=== PATIENT | male | born 1955 | race Two or more races ===

== ENCOUNTER 2024-06-30 12:21 | Inpatient (IN) | payer OTHER, SELFPAY ==
[2024-06-30] VITALS (99 sets, daily range): BP systolic 63–148; BP diastolic 42–97; BMI 28.2
--- NOTE | 2024-06-30 09:31 | ED.GENMED ---
History of Present Illness
<Rhett Gil PA-C - Last Filed: 06/30/24 11:49>
General
Chief Complaint: CVA/TIA Symptoms
Source: patient and other (Correctional officers)
Time Seen by Provider: 06/30/24 09:22
History of Present Illness
History of Present Illness:
68-year-old male with a reported past medical history of myf-[id number] diabetes presenting to the emergency department from [facility] for reported change in mental status and patient being off balance with an unknown
onset of symptoms. Patient also noting left eye visual disturbance but unclear as to if this is a chronic or new symptom. Correctional officers were with the patient note that he is normally loud and boisterous but today patient seems to be much
more quiet and seemingly having some difficulty speaking. The note from nursing staff at the [facility] patient had some difficulty answering some questions. Patient denying any pain to me as well as any focal weakness or numbness but
remaining history was very difficult to obtain as patient would sometimes just not answer the question or speak at all.
Past History
<Rhett Gil PA-C - Last Filed: 06/30/24 11:49>
Past History
ED Past Medical History: NIDDM
ED Past Surgical History: Other (Unknown)
Social History
Tobacco: Former smoker
Alcohol: None
Drug: None
Personal: Single
Living: nursing home
Review of Systems
<Rhett Gil PA-C - Last Filed: 06/30/24 11:49>
Review of Systems
Unable to obtain full review of systems at this time due to: due to acuity
All Other Systems: ROS reviewed and negative except as documented in HPI and ROS
Phy Exam
<Rhett Gil PA-C - Last Filed: 06/30/24 11:49>
Physical Exam
Physical Exam:
GENERAL: Alert , in no apparent distress, answering some questions
HEAD: NCAT
EYE: clear conjunctiva, pupils 3 mm, unable to assess visual field as patient having a hard time participating with exam
NECK: Supple
ENT: o/p clr, mmm.
CARDIAC: Regular rate and rhythm .
LUNGS: Clear breath sounds bilaterally, no acute respiratory distress, no wheezes/rales/rhonchi
ABDOMEN: Soft, without focal tenderness, no r/g, no cvat
NEUROLOGICAL: Alert and oriented to place and self, FULLER x4, reports sensation intact
SKIN: very cold to touch, unable to obtain temperature and dry, skin intact.
MUSCULOSKELETAL: No edema, well perfused.
PSYCH: difficult to assess, somewhat flat affect
Scores
<Rhett Gil PA-C - Last Filed: 06/30/24 11:49>
Heart Failure Risk
Heart Failure Risk Score: Not Applicable
Heart Score for Chest Pain Patients
STEMI patient?: Not applicable
Withdrawal Assessment of Alcohol
Withdrawal Assessment Completed?: Not applicable
Sepsis
<Rhett Gil PA-C - Last Filed: 06/30/24 11:49>
Sepsis Screening
Sepsis Assessment: Septic Shock
Sepsis Screening: Hypotension and Vasopressor support required
Sepsis Screen
Sepsis Screen: Septic Shock
Date: 06/30/24
Time: 11:48
<Melvin Kim MD - Last Filed: 06/30/24 12:57>
Sepsis Screen
Sepsis Screen: Septic Shock
Date: 06/30/24
Time: 12:54
Course
<Rhett Gil PA-C - Last Filed: 06/30/24 11:49>
Orders/Labs/Results
Orders:
Orders
06/30/24 09:28
Electrocardiogram (*1) Urgent
Reason for Study: Other
Other Reason for Exam: sepsis
EKG- Treatment ONCE
Rubin Placement- Treatment ONCE
Reason for insertion: I&O's Critical Care
0.9% Sodium Chloride 1000 ml [Nss] 2,900 ml IV NOW STA
06/30/24 09:30
CT Head W/o Iv Contrast Urgent
Comment:
Reason For Exam: change in mental status
06/30/24 09:40
Vincenzo Hugger [Vincenzo Hugger-Treatment] ONCE
Patient's goal temperature:: 97 F
Additional Instructions:: Temperature and skin assessment per unit protocol
06/30/24 09:59
Atropine Sulfate [Atropine 0.1 mg/ml Syringe] 1 mg .ROUTE .STK-MED ONE
06/30/24 10:11
CR Chest Portable - 1 View Urgent
Comment:
Reason For Exam: change in mental status, hypothermia
Reason Study Needs to be Portable: Patient Unstable
06/30/24 10:12
Visual Acuity- Treatment ONCE
06/30/24 10:22
Complete Blood Count/With Diff Urgent
Comprehensive Metabolic Panel Urgent
Cortisol, Random Urgent
Comment: ADD ON
Free T4 Urgent
Comment: ADD
Lactic Acid Q4H
Comment: CANCEL 2nd LACTIC ACID IF 1st LACTIC ACID IS LESS THAN 2
Lyme Progressive Routine
Comment: ADD
TSH Urgent
Comment: ADD ON
Troponin I Urgent
Blood Culture Q30M
MARIA GUADALUPE Source: Blood/Venous
Specimen Description:
Blood Culture Q30M
MARIA GUADALUPE Source: Blood/Venous
Specimen Description:
06/30/24 10:26
Urinalysis Reflex To Culture Urgent
Date Specimen was Collected: 06/30/24
Time Specimen was Collected: 10:25
06/30/24 10:32
Warming [Thermal Regulation-Treatment] ONCE
Mode:: Automatic
Type of thermoregulation:: Heating
PATIENT'S Goal Temperature:: 96.8 F (36 C)
Comments/Additional Instructions:: Temperature and skin assessment per unit protocol
06/30/24 10:51
Atropine Sulfate [Atropine 0.1 mg/ml Syringe] 0.5 mg IV NOW STA
06/30/24 11:00
DOPamine 400 MG/D5W 250 ML [DOPamine 400 MG] 400 mg in 250 ml IV PER PROTOCOL
Initial dose in mcg/kg/min, then titrate:: 2
Titrate to keep:: SBP > 90 mmHg
Titrate by mcg/kg/min:: 1-2 mcg/kg/min
Frequency of titrations (minutes):: 15
Maximum dose in ICU in mcg/kg/min:: 20
Maximum dose in IMU in mcg/kg/min:: 10
Begin to taper infusion when:: Remained at goal for 4hrs
Taper by mcg/kg/min:: 1-2 mcg/kg/min
Frequency of taper (minutes) if patient maintains goal:: 30
Taper to off?: Yes
If infusion off & no longer maintaining goal:: Contact Provider
06/30/24 11:11
COVID-19 Antigen Urgent
Source: Nasal Swab
Influenza A+B Rapid Molecular Urgent
MARIA GUADALUPE Source: Nasal Swab
Specimen Description:
PICC Line As Directed
06/30/24 11:36
Add On- LAB Urgent
Tests Added?: tsh,cortisol
06/30/24 11:40
Echo 2D MMode Color/Doppler Routine
Reason for Study: willy and hypotension
CARDIOLOGY CONSULT Routine
Consulting Provider: Miguelito Story
Was physician already notified: Yes
Reason for consult: willy, hypotension
06/30/24 11:41
NEUROLOGY CONSULT Routine
Consulting Provider: Alexa Silva
Was physician already notified: Yes
Reason for consult: Speech changes
06/30/24 11:42
Atropine Sulfate [Atropine 0.1 mg/ml Syringe] 1 mg IV Q4HPRN PRN
06/30/24 11:43
Heating/Cooling [place] As Directed
Mode:: Automatic
Type of thermoregulation:: Heating
PATIENT'S Goal Temperature:: 96.8 F (36 C)
Comments/Additional Instructions:: Temperature and skin assessment per unit protocol
06/30/24 11:44
Admit/Transfer Patient As Directed
Co-Sign Provider:
Level of Care: Inpatient admission
Assign to:: ICU
Physician / Group: Hospitalist
Diagnosis: Bradycardia,hypothermia
Reason for Hospitalization: Willy
Expected length of stay greater than two midnights?: Yes
ELOS- Estimated Length of Stay in days: 2
I certify the patient meets the requirements for IP care: Yes
06/30/24 11:45
Troponin I Q6H
PRN Pain Medication Management As Directed
May give lesser potent ordered pain med per pt: Yes
preference::
Protocol:: Medication orders for pain may be administered in a
manner that supports deferring to patient preference
when the pt is:
- Requesting an ordered lesser potent pain medication.
Least to most potent pain medications are defined
as: acetaminophen < NSAID < tramadol < opioids
(morphine, oxycodone, hydromorphone).
- Requesting a lesser dose of the same medication IF
ORDERED.
- Requesting a less intrusive route of administration
if both routes are prescribed by the provider (PO <
IV).
06/30/24 11:52
Add On- LAB Urgent
Comments:: in lab
Tests Added?: Lyme progressive
06/30/24 12:06
Add On- LAB Routine
Tests Added?: TSH with reflex to free T4
06/30/24 12:12
Cr Chest Portable [CR Chest Portable - 1 View] Urgent
Comment:
Reason For Exam: left sided PICC placement
Reason Study Needs to be Portable: Unable to Transport
06/30/24 17:45
Troponin I Q6H
06/30/24 23:45
Troponin I Q6H
Abnormal Lab Results
06/30/24 06/30/24 06/30/24
09:53 10:22 10:26
WBC 3.3 L 10^3/uL
(4.8-10.8)
RBC 4.31 L 10^6/uL
(4.70-6.10)
Hgb 12.7 L g/dL
(13.0-18.0)
MCHC 32.3 L g/dL
(33.0-37.0)
MPV 12.8 H fL
(7.4-10.4)
Absolute Lymphs (auto) 0.6 L 10^3/uL
(1.2-3.4)
Lymphocytes % 17.9 L %
(20.5-51.1)
Chloride 95 L mmol/L
(98-107)
Carbon Dioxide 32 H mmol/L
(22-30)
BUN 23 H mg/dl
(9-20)
Glucose 167 H mg/dl
(70-99)
Troponin I 0.039 H* ng/ml
Urine Glucose 1+ A
(Negative)
POC Glucose 204 H mg/dl
(70-99)
06/30/24 10:22
06/30/24 10:22
Vital Signs
Initial and Last Documented VS:
Initial Vital Signs
Pulse Resp BP Pulse Ox
62 20 129/82 98
06/30/24 09:21 06/30/24 09:21 06/30/24 09:21 06/30/24 09:21
Last Documented Vital Signs
Temp Pulse Resp BP Pulse Ox
90.9 F L 58 7 121/58 96
06/30/24 12:00 06/30/24 12:00 06/30/24 12:00 06/30/24 11:55 06/30/24 12:00
<Melvin Kim MD - Last Filed: 06/30/24 12:57>
Orders/Labs/Results
Orders:
Orders
06/30/24 09:28
Electrocardiogram (*1) Urgent
Reason for Study: Other
Other Reason for Exam: sepsis
EKG- Treatment ONCE
Rubin Placement- Treatment ONCE
Reason for insertion: I&O's Critical Care
0.9% Sodium Chloride 1000 ml [Nss] 2,900 ml IV NOW STA
06/30/24 09:30
CT Head W/o Iv Contrast Urgent
Comment:
Reason For Exam: change in mental status
06/30/24 09:40
Vincenzo Hugger [Vincenzo Hugger-Treatment] ONCE
Patient's goal temperature:: 97 F
Additional Instructions:: Temperature and skin assessment per unit protocol
06/30/24 09:59
Atropine Sulfate [Atropine 0.1 mg/ml Syringe] 1 mg .ROUTE .STK-MED ONE
06/30/24 10:11
CR Chest Portable - 1 View Urgent
Comment:
Reason For Exam: change in mental status, hypothermia
Reason Study Needs to be Portable: Patient Unstable
06/30/24 10:12
Visual Acuity- Treatment ONCE
06/30/24 10:22
Complete Blood Count/With Diff Urgent
Comprehensive Metabolic Panel Urgent
Cortisol, Random Urgent
Comment: ADD ON
Free T4 Urgent
Comment: ADD
Lactic Acid Q4H
Comment: CANCEL 2nd LACTIC ACID IF 1st LACTIC ACID IS LESS THAN 2
Lyme Progressive Routine
Comment: ADD
TSH Urgent
Comment: ADD ON
Troponin I Urgent
Blood Culture Q30M
MARIA GUADALUPE Source: Blood/Venous
Specimen Description:
Blood Culture Q30M
MARIA GUADALUPE Source: Blood/Venous
Specimen Description:
06/30/24 10:26
Urinalysis Reflex To Culture Urgent
Date Specimen was Collected: 06/30/24
Time Specimen was Collected: 10:25
06/30/24 10:32
Warming [Thermal Regulation-Treatment] ONCE
Mode:: Automatic
Type of thermoregulation:: Heating
PATIENT'S Goal Temperature:: 96.8 F (36 C)
Comments/Additional Instructions:: Temperature and skin assessment per unit protocol
06/30/24 10:51
Atropine Sulfate [Atropine 0.1 mg/ml Syringe] 0.5 mg IV NOW STA
06/30/24 11:00
DOPamine 400 MG/D5W 250 ML [DOPamine 400 MG] 400 mg in 250 ml IV PER PROTOCOL
Initial dose in mcg/kg/min, then titrate:: 2
Titrate to keep:: SBP > 90 mmHg
Titrate by mcg/kg/min:: 1-2 mcg/kg/min
Frequency of titrations (minutes):: 15
Maximum dose in ICU in mcg/kg/min:: 20
Maximum dose in IMU in mcg/kg/min:: 10
Begin to taper infusion when:: Remained at goal for 4hrs
Taper by mcg/kg/min:: 1-2 mcg/kg/min
Frequency of taper (minutes) if patient maintains goal:: 30
Taper to off?: Yes
If infusion off & no longer maintaining goal:: Contact Provider
06/30/24 11:11
COVID-19 Antigen Urgent
Source: Nasal Swab
Influenza A+B Rapid Molecular Urgent
MARIA GUADALUPE Source: Nasal Swab
Specimen Description:
PICC Line As Directed
06/30/24 11:36
Add On- LAB Urgent
Tests Added?: tsh,cortisol
06/30/24 11:40
Echo 2D MMode Color/Doppler Routine
Reason for Study: willy and hypotension
CARDIOLOGY CONSULT Routine
Consulting Provider: Miguelito Story
Was physician already notified: Yes
Reason for consult: willy, hypotension
06/30/24 11:41
NEUROLOGY CONSULT Routine
Consulting Provider: Alexa Silva
Was physician already notified: Yes
Reason for consult: Speech changes
06/30/24 11:42
Atropine Sulfate [Atropine 0.1 mg/ml Syringe] 1 mg IV Q4HPRN PRN
06/30/24 11:43
Heating/Cooling [place] As Directed
Mode:: Automatic
Type of thermoregulation:: Heating
PATIENT'S Goal Temperature:: 96.8 F (36 C)
Comments/Additional Instructions:: Temperature and skin assessment per unit protocol
06/30/24 11:44
Admit/Transfer Patient As Directed
Co-Sign Provider:
Level of Care: Inpatient admission
Assign to:: ICU
Physician / Group: Hospitalist
Diagnosis: Bradycardia,hypothermia
Reason for Hospitalization: Willy
Expected length of stay greater than two midnights?: Yes
ELOS- Estimated Length of Stay in days: 2
I certify the patient meets the requirements for IP care: Yes
06/30/24 11:45
Troponin I Q6H
PRN Pain Medication Management As Directed
May give lesser potent ordered pain med per pt: Yes
preference::
Protocol:: Medication orders for pain may be administered in a
manner that supports deferring to patient preference
when the pt is:
- Requesting an ordered lesser potent pain medication.
Least to most potent pain medications are defined
as: acetaminophen < NSAID < tramadol < opioids
(morphine, oxycodone, hydromorphone).
- Requesting a lesser dose of the same medication IF
ORDERED.
- Requesting a less intrusive route of administration
if both routes are prescribed by the provider (PO <
IV).
06/30/24 11:52
Add On- LAB Urgent
Comments:: in lab
Tests Added?: Lyme progressive
06/30/24 12:06
Add On- LAB Routine
Tests Added?: TSH with reflex to free T4
06/30/24 12:12
Cr Chest Portable [CR Chest Portable - 1 View] Urgent
Comment:
Reason For Exam: left sided PICC placement
Reason Study Needs to be Portable: Unable to Transport
06/30/24 17:45
Troponin I Q6H
06/30/24 23:45
Troponin I Q6H
Abnormal Lab Results
06/30/24 06/30/24 06/30/24
09:53 10:22 10:26
WBC 3.3 L 10^3/uL
(4.8-10.8)
RBC 4.31 L 10^6/uL
(4.70-6.10)
Hgb 12.7 L g/dL
(13.0-18.0)
MCHC 32.3 L g/dL
(33.0-37.0)
MPV 12.8 H fL
(7.4-10.4)
Absolute Lymphs (auto) 0.6 L 10^3/uL
(1.2-3.4)
Lymphocytes % 17.9 L %
(20.5-51.1)
Chloride 95 L mmol/L
(98-107)
Carbon Dioxide 32 H mmol/L
(22-30)
BUN 23 H mg/dl
(9-20)
Glucose 167 H mg/dl
(70-99)
Troponin I 0.039 H* ng/ml
Urine Glucose 1+ A
(Negative)
POC Glucose 204 H mg/dl
(70-99)
06/30/24 10:22
06/30/24 10:22
Vital Signs
Initial and Last Documented VS:
Initial Vital Signs
Pulse Resp BP Pulse Ox
62 20 129/82 98
06/30/24 09:21 06/30/24 09:21 06/30/24 09:21 06/30/24 09:21
Last Documented Vital Signs
Temp Pulse Resp BP Pulse Ox
90.9 F L 58 7 121/58 96
06/30/24 12:00 06/30/24 12:00 06/30/24 12:00 06/30/24 11:55 06/30/24 12:00
<Rhett Gil PA-C - Last Filed: 06/30/24 11:49>
MDM/Problems Addressed
Differential Diagnosis Includes:
sepsis/bacteremia, hypothermia, CVA, ICH, pneumomina, electrolyte disturbance
MDM/Problems Addressed:
68-year-old male presenting the emergency department for evaluation of change in mental status with an unknown duration of time. [employer] noting patient is normally loud and boisterous today, much more reserved and having difficulty
answering most questions. Exam was quite difficult to obtain as patient would answer some questions but others he would just stare into space and not give any answer or very difficult to understand the patient/incomprehensible speech. Patient is
following commands appropriately and moving all extremities. Given unknown duration of onset, no stroke alert was called however CT of the head ordered for further evaluation. Bedside glucose slightly elevated. Sepsis workup initiated given
patient does not have an obtainable temperature via oral or rectal route. Vincenzo hugger ordered. Patient also intermittently bradycardic with rate between 40-55. Did have one episode dropping into high 30's. If continues or persists will consider
atropine. Anticipate admission
<Rhett Gil PA-C - Last Filed: 06/30/24 11:49>
*Pulse Oximetry
Patient hypoxic: no
*EKG
Heart Rate: 39
Rate: bradycardiac
Rhythm: sinus, PAC's and PVC's
Interval: first degree heart block
*Computational Linguist Interpretation
Rate: bradycardiac
Heart Rate: 45
Rhythm: sinus
*Critical Care Note
Total Time (30-74mins, 75-104mins- exclusive of procedures): 35
comment:
Critical care statement: A total of 35 minutes of critical care time was provided for this patient. This includes management of unstable vital signs, evaluation of the patient at bedside, reviewing the patient's pertinent medical records, discussion
with consultants, review of old EKGs and review of pertinent medical records. This time with separate from time utilized to perform the aforementioned documented procedures
<Rhett Gil PA-C - Last Filed: 06/30/24 11:49>
Comment
Comment:
Patients initial core temp following temp sensing rubin placement is 89.4. Continuing Vincenzo Hugger. Adding warm IVF for further treatment. Awaiting labs with plan for admit
Patient had a brief bradycardic episode which required sternal rub and patient HR back up in to 40's-50's. 0.5mg dose IV atropine ordered. Patient also now hypotensive at 90/54. Dopamine infusion initiated. Patient will likely require IMU/ICU care.
Patient Management
Discussion with other providers: Hospitalist, [employer] staff
Escalation/DeEscalation of care consider admission/obs:
Hospitalist team accepts for continued evaluation and treatment of hypothermia. Hospitalist requesting cardiology be consulted. Notified Dr. Story who will advise in consult. No further recommendations at this time outside of continue warming.
ED Attending Note
<Rhett Gil PA-C - Last Filed: 06/30/24 11:49>
-
Portions of this chart may have been created with voice recognition software.� Occasional wrong word or��sound alike� substitutions may have occurred due to the inherent limitations of voice recognition software.
<Melvin Kim MD - Last Filed: 06/30/24 12:57>
ED Attending Note
Patient seen and examined by attending physician: Yes
ED Attending Note:
Patient presents to ED from [facility] after he was found to be unsteady with mental status changes at [facility] this morning. Upon arrival, patient is found to be hypothermic, but offers no additional complaints. Denies
headache. Denies loss of sensation or weakness. Denies difficulty with speech. Denies recent illness. Denies recent change in medications or diet. Denies previous history of similar symptoms. Of note, there is additional report of left eye
visual loss, which patient reportedly states that he noticed couple days ago.
Physical Exam
General: mild distress, acutely ill. hypothermic
Head: nc/at. eomi
Neck: supple. normal range of motion.
Heart: s1/s2 regular rate and rhythm, no murmur. equal radial pulses.
Lungs: no acute respiratory distress. clear bilaterally
Abdomen: normal bowel sounds. not tender.
Neuro: alert and oriented x 3. no focal sensory/motor deficit. normal speech
Skin: no rash
Psychiatric: well kept. interactive and cooperative
Extremities: no edema. no calf tenderness.
Patient presents severely hypothermic with bradycardia, with normal blood pressure and mentation. Patient presenting symptoms concerning for potential CVA versus metabolic encephalopathy. Will consult neurology/cardiology for further input.
Patient with an unremarkable workup in ED, including CT head and blood work, as well as COVID/flu swab. Unfortunately, patient remains hypotensive and bradycardic, now requiring dopamine pressor support. Patient is somnolent but easily arousable
to voice and appropriate answering simple questions. Patient will be admitted to ICU for close observation and treatment.
Blood culture pending. No obvious source of infection at this time. Will hold off antibiotics at this time.
Critical care statement: A total of 40 minutes of critical care time was provided for this patient. This includes management of unstable vital signs, evaluation of the patient at bedside, reviewing the patient's pertinent medical records, discussion
with consultants, review of old EKGs and review of pertinent medical records. This time with separate from time utilized to perform the aforementioned documented procedures
Discharge Plan
Departure
Patient Disposition: Admit
Date of Disposition: 06/30/24
Time of Disposition: 11:09
Presentation/result/management discussed w/ accepting MD/DO: Hospitalist
Discharge Problem:
Hypothermia
Interventions
Interventions:
*Risk Screen - Suicide Last Done: 06/30/24 09:55
*General Assessment Last Done: 06/30/24 09:55
*Neglect/Abuse Screening Last Done: 06/30/24 09:55
ED- Fall Risk Assessment Last Done: 06/30/24 09:55
*ED COVID-19 Vaccine History Last Done: 06/30/24 09:55
ED- Pulmonary Assessment Last Done: 06/30/24 09:55
ED- Neurological Assessment Last Done: 06/30/24 09:55
ED- Cardiac Assessment Last Done: 06/30/24 09:55
ED Swallowing Screen Last Done: 06/30/24 09:55
[2024-06-30 09:54] LABS: Glucose - Point of Care 204 mg/dl (70-99)
[2024-06-30 10:38] LABS: % Basophils 0.3 % (0-2); % Eosinophils 0.9 % (0-6); % Lymphocytes 17.9 % (20.5-51.1); % Monocytes 6.7 % (1.7-9.3); % Neutrophils 74.2 % (42.2-75.2); Absolute Lymphocytes 0.6 10^3/uL (1.2-3.4); Absolute Monocytes 0.2 10^3/uL (0.1-0.6); Absolute Neutrophils 2.5 10^3/uL (1.4-6.5); Hematocrit 39.3 % (39.0-52.0); Hemoglobin 12.7 g/dL (13.0-18.0); Mean Corp Hgb Conc. 32.3 g/dL (33.0-37.0); Mean Corpuscular Hgb 29.5 pg (27.0-31.0); Mean Corpuscular Volume 91.2 fL (80.0-94.0); Mean Platelet Volume 12.8 fL (7.4-10.4); Nucleated Red Blood Cells % 0 % (-); Platelet Count 164 10^3/uL (130-400); Red Blood Cell Count 4.31 10^6/uL (4.70-6.10); Red Cell Dist. Width 12.7 % (11.5-14.5); White Blood Cell Count 3.3 10^3/uL (4.8-10.8)
[2024-06-30 10:39] LABS: Urine Albumin Trace (Neg - Trace); Urine Bilirubin Negative (Negative); Urine Character Clear (Clear); Urine Color Yellow; Urine Glucose 1+ (Negative); Urine Ketone Negative (Negative); Urine Leukocyte Negative (Negative); Urine Nitrite Negative (Negative); Urine Occult Blood Negative (Negative); Urine Specific Gravity 1.015 (<1.030); Urine Urobilinogen Negative (Neg - 1+)
[2024-06-30] MEDS: NSS 2900 ML IV (10:48)
[2024-06-30] MEDS: ATROPINE 0.1 MG/ML SYRINGE 0.5 MG IV (10:56)
[2024-06-30 10:58] LABS: ALT (SGPT) 32 U/L (0-50); AST (SGOT) 37 U/L (17-59); Albumin 4.3 g/dl (3.5-5.0); Alkaline Phosphatase 75 U/L (38-126); Blood Urea Nitrogen 23 mg/dl (9-20); Calcium 9.7 mg/dl (8.4-10.2); Carbon Dioxide 32 mmol/L (22-30); Chloride 95 mmol/L (98-107); Estimated Creatinine Clearance 108 ml/min; Glucose 167 mg/dl (70-99); Potassium 4.5 mmol/L (3.5-5.1); Sodium 136 mmol/L (135-145); Total Bilirubin 0.2 mg/dl (0.2-1.3); Total Protein 7.2 g/dl (6.3-8.2); eGFR > 60.00
[2024-06-30] MEDS: DOPamine 400 MG 250 IV (11:01)
[2024-06-30 11:03] LABS: Lactic Acid 1.8 mmol/L (0.7-2.0)
[2024-06-30 11:16] LABS: Troponin I 0.039 ng/ml
--- NOTE | 2024-06-30 11:30 | CON.CAR ---
Addendum entered and electronically signed by Miguelito Story MD 06/30/24 16:13:
I saw and examined the patient.
The SUPERVISOR WINTER's note was reviewed and I agree with the note.
Comment: His heart block has responded to meds and warming. My review of literature show various levels of heart block associated/caused by hypothermia. I doubt that cardiac pacing will be needed. Continue telemetry and evaluate for etiology of
hypothermia.
Original Note:
Consultation
Consultation Request
Date/Time Consultation Requested: 06/30/24 1140
Date/Time Consultation Performed: 06/30/24 1145
Requesting Provider: Dr. Chaney
Performing Provider: Gabriela TREJO for Dr. Story
Reason for Consultation: bradycardia, hypotension
Medical History
-
Chief Complaint: change in mental status
History of Present Illness:
68 y/o male with hx DM who is here for evaluation of change in MS noted by staff at the correctional facility where he lives. Patient is not currently a good historian, though he follows simple commands. I spoke with the guards in the room who
report that he has been progressively declining over the past several weeks (about 1 month) in that he has been more quiet and subdued and also weak. He walked to the [facility] today for his meds and had to hold onto things to walk because he was so
weak. Therefore, he was taken to the hospital. In the ER, he is seen to have significant hypothermia (89.4 F) of unknown cause. We are consulted since he has bradycardia and hypotension in this setting. He received atropine and is now on dopamine
drip, while he is being warmed. HR and BP improved.
Past Medical History
Past Medical History: NIDDM
Social History
Living: Half-Way
Family History
Family History: Unable to Obtain
Allergies / Home Medications
Allergy/AdvReac Type Severity Reaction Status Date / Time
No Known Allergies Allergy Unverified 06/30/24 09:20
�Medication �Instructions �Recorded �Confirmed �Type
acetaminophen 325 mg tablet 650 mg PO BIDPRN PRN mild 06/30/24 06/30/24 History
(Tylenol) pain/fever
bumetanide 1 mg tablet 1 mg PO BIDPRN PRN fluid retention 06/30/24 06/30/24 History
buprenorphine HCl 8 mg sublingual 8 mg sublingual DAILY@0700 06/30/24 06/30/24 History
tablet
metformin 500 mg tablet 500 mg PO BID 06/30/24 06/30/24 History
risperidone 3 mg tablet 3 mg PO HS 06/30/24 06/30/24 History
therapeutic multivitamin 1 tab PO DAILY 06/30/24 06/30/24 History
Review of Systems
-
History Source: Other (chart, retirement guards)
Constitutional: Other (weakness)
Neurological: Other (change in mental status)
Physical Exam
Vital Signs
Temp Pulse Resp BP Pulse Ox
89.8 F L 59 18 98/63 96
06/30/24 11:05 06/30/24 11:15 06/30/24 11:15 06/30/24 11:15 06/30/24 11:15
Lab Results
06/30/24 10:22
06/30/24 10:22
Troponin I 0.039 ng/ml H* 06/30/24 10:22
Physical Exam
General: Well Developed, Well Nourished and No Apparent Distress
HEENT: Normocephalic and Anicteric
Respiratory: Clear and Non Labored Respirations
Cardiac: Regular Rhythm
Musculoskeletal: No Edema
Skin: Warm and Dry
Neuro: Awake and Other (Minimally responsive. Answers some questions, follows some commands. Not good historian.)
Psych: Calm
Impression / Plan
-
Hypothermia: significant, cause unclear
-blood cx pending
-w/u per primary team
Bradycardia, hypotension:
-in setting of significant hypothermia
-patient being warmed
-improved- currently on dopamine drip, which requires intensive monitoring
-obtain echo
-follow telemetry
DM:
-on metformin as OP
-serum glucose 167
Data Reviewed
-
EKG: Tracing Personally Visualized and interpreted (SB 39 BPM, marked SA, 1st degree AVB)
Radiology: Report Reviewed by me (CXR: pulmonary vascularity most likely top normal.)
CT Scan: Report Reviewed by me (Head CT: No acute intracranial abnormalities. Findings compatible with diffuse cortical atrophy with nonspecific white matter changes as described above.)
Labs: Labs Reviewed by me
[2024-06-30 11:34] LABS: COVID-19 Antigen Negative (Negative)
--- NOTE | 2024-06-30 11:37 | HPS.HSE ---
Family Physician
-
Family Physician: Facility [facility]
Chief Complaint
-
Mental status change and off balance
History of Present Illness
68-year-old male from correctional facility because of mental status change. He was very quiet and had some difficulty speaking. And answering questions. Stroke alert was called and CT of the head was obtained in the ER. Sepsis workup was also
initiated because patient was found to be hypothermic. His also bradycardic.
Correction officers at bedside states that he is usually very loud and talking this has been happening for the past couple of weeks his speech has gone down in volume and sometimes difficult to understand.
Medical History
Past Medical History
Past Medical History: Reports Other
Additional Past Medical History:
Elevated PSA, diabetes
Past Surgical History: Reports Other
Additional Past Surgical History:
Unknown
Social History
Tobacco: Non-smoker
Alcohol: None
Family History
Family History: Other
Allergies / Home Medications
Allergies reflects when Allergies were last updated in [facility].
Home Medications with original date entered in [facility]
Allergy/Medication List:
Allergies
Allergy/AdvReac Type Severity Reaction Status Date / Time
No Known Allergies Allergy Unverified 06/30/24 09:20
Home Medications
acetaminophen 325 mg tablet (Tylenol) 650 mg PO BIDPRN PRN mild pain/fever 06/30/24
bumetanide 1 mg tablet 1 mg PO BIDPRN PRN fluid retention 06/30/24
buprenorphine HCl 8 mg sublingual tablet 8 mg sublingual DAILY@0700 06/30/24
metformin 500 mg tablet 500 mg PO BID 06/30/24
risperidone 3 mg tablet 3 mg PO HS 06/30/24
therapeutic multivitamin 1 tab PO DAILY 06/30/24
Review of Systems
-
Unable to obtain full review of systems at this time due to: Other (confused)
History Source: Other
Physical Exam
Vital Signs
Vital Signs
Temp Pulse Resp BP Pulse Ox
89.8 F L 59 18 98/63 96
06/30/24 11:05 06/30/24 11:15 06/30/24 11:15 06/30/24 11:15 06/30/24 11:15
Physical Exam
Respiratory: Clear
Cardiac: S1/S2 and Regular Rhythm
GI: Soft and Non Tender
Neuro: Awake, No Motor Deficits, Cranial Nerves Intact, DTR's Intact & Symmetrical and Other (Speech very low volume and very difficult to understand, not consistently following directions)
Psych: Confused
Laboratory Results
-
06/30/24 10:22
06/30/24 10:22
Laboratory Results
Lactic Acid 1.8 mmol/L (0.7-2.0) 06/30/24 10:22
Total Bilirubin 0.2 mg/dl (0.2-1.3) 06/30/24 10:22
AST 37 U/L (17-59) 06/30/24 10:22
ALT 32 U/L (0-50) 06/30/24 10:22
Alkaline Phosphatase 75 U/L (38-126) 06/30/24 10:22
Troponin I 0.039 ng/ml H* 06/30/24 10:22
Data Reviewed
-
Diagnostic Radiology: Image Personally Visualized and interpreted (Chest x-ray mild pulmonary edema)
CT Scan: Other (Head CT no acute changes. Diffuse cortical atrophy)
Impression/Plan
-
IMPRESSION/PLAN:
# Speech abnormality/confusion
Has been going on for the past 2 weeks gradually declining per licensed loan officer at bedside .
He is usually 'very loud and boisterous' per licensed loan officer at bedside
Check an EEG
MRI of the brain
Neurology evaluation
# Symptomatic bradycardia
Admit to ICU
Dopamine started
As needed atropine
Cardiology evaluation
Troponins to be followed to rule out ischemia
Check echo
Unclear why patient is on Bumex
# Shock secondary to bradycardia versus other
Check blood cultures and look for septic source
Chest x-ray and urinalysis unremarkable
# Hypothermia-no septic source
Check TSH and cortisol level
Bear hugger
# Diabetes-continue metformin
Accu-Cheks and sliding scale coverage
# Elevated PSA-was supposed to follow-up with Dr. Bartholomew
# DVT prophylaxis-Lovenox
# Full code
Total Critical Care Time 60 minutes. I was immediately available to the patient and staff. I personally examined, reviewed labs, diagnostic images/reports, interpretations, treatment plans, discussed patient care with other providers and
correctional officers at bedside entered orders as appropriate and documented the medical record.
--- NOTE | 2024-06-30 13:07 | CON.NEURO ---
Addendum entered and electronically signed by Alexa Silva MD 07/01/24 15:13:
time spent-55 minutes
Original Note:
Consultation
Order
Date of Consultation: 06/30/24
Requesting Provider: Alfredo Chaney MD
Reason for Consult: Speech changes
Neurology Consultation Note.
HPI: This is a 68-year-old man who presented to [facility] on 06/30/2021 5 with change in speech. The patient is unable to provide the history.
According to coastal/harbor defense officer, over the past few months, Mr. Cases has had a progressive decline in communication and ambulation. He was able to talk, walk, and speak fluently when he first entered the facility three to four months ago.
However, his condition has worsened over time, and he now requires assistance with walking.
ER VS: 129/80-68/47, 62-34, 31.9 C.
EKG:QTc Int : sinus bradycardia at 39, P-R Int : 256 ms, QTc Int 379 ms
PDMP:Phenobarbital 32.4 Mg 20 tabs filled in on 03/15/2023.
MAR: Atropine Sulfate 0.5 Mg given on 06/30/24 at 10:56 AM, Dopamine
Labs: glucose�167, WBCs�3.3, absolute lymphocyte count�0.6 hemoglobin�12.7, platelets�164, normal sodium, creatinine, lactic acid, bilirubin, free T4, ua, neg SARs-Cov2
CT head wo contrast-diffuse cortical atrophy
PMH:elevated PSA, DM, CHF , opioid use disorder
PSH: unknown
SH:active inmate at [facility], former smoker
FH:mother-cancer
All:NKDA
ROS:Limited
General: Restrained.
Cardio: Regular rate . Extremities are without cyanosis or edema.
Neuro:
Mental Status: Alert, oriented to name. Follows simple requests intermittently. Nonfluent. Most of the questions answered as 'yes'
Cranial Nerves: Left exodeviation in primary gaze. Right ALEK pacification. Limited extraocular movement visual field exam due to cooperation.
Motor: Moves all limbs within bed plane
Reflexes: Moderate exam due to restraints
Sensory: Limited exam due to poor attention.
Coordination: No tremors myoclonic movements
Gait: deferred
Assessment and Plan:
I. Septic shock
II. Encephalopathy.
III. Expressive aphasia
-Continue Telemetry monitoring.
-Please check TSH, vitamin B12, thiamine, magnesium, CK, urine tox
-Routine EEG
-Brain MRI without izabela
-Please obtain medical records from Rosemary Mendoza MD
-DVT prophylaxis.
I personally reviewed all radiology and labs along with past medical records pertinent to current medical problems. Total time spent in patient care is 5 minutes.
Thank you for allowing us to participate in the care of this patient. We will continue to follow. Please do not hesitate to contact us with any questions or concerns.
Subjective/Objective
Subjective Data
Date of Service: June 30, 2024
Objective Data
Vital Signs
Temp Pulse Resp BP Pulse Ox
33.5 C L 67 16 94/50 96
06/30/24 13:01 06/30/24 13:00 06/30/24 13:00 06/30/24 12:55 06/30/24 13:00
Lab Results
06/30/24 10:22
06/30/24 10:22
Sodium 136 mmol/L (135-145) 06/30/24 10:22
Potassium 4.5 mmol/L (3.5-5.1) 06/30/24 10:22
BUN 23 mg/dl (9-20) H 06/30/24 10:22
Glucose 167 mg/dl (70-99) H 06/30/24 10:22
Calcium 9.7 mg/dl (8.4-10.2) 06/30/24 10:22
Patient Allergies
No Known Allergies Allergy (Unverified 06/30/24 09:20)
Medications
-
Active Medications
Generic Name Dose Route Start Last Admin
Trade Name Freq PRN Reason Stop Dose Admin
Atropine Sulfate 1 mg 06/30/24 11:42
Atropine Sulfate 1 Mg/10 Ml Syringe IV 07/28/24 11:41
Q4HPRN PRN
HR sustaining below 40
Dopamine HCl/Dextrose 400 mg in 250 mls @ 0 mls/hr 06/30/24 11:00 06/30/24 11:01
Dopamine 400 Mg IV 250 mls
PER PROTOCOL MARIKA Administration
Protocol
Per Protocol
Home Medications
�Medication �Instructions �Recorded
acetaminophen 325 mg tablet 650 mg PO BIDPRN PRN mild 06/30/24
(Tylenol) pain/fever
bumetanide 1 mg tablet 1 mg PO BIDPRN PRN fluid retention 06/30/24
buprenorphine HCl 8 mg sublingual 8 mg sublingual DAILY@0700 06/30/24
tablet
metformin 500 mg tablet 500 mg PO BID 06/30/24
risperidone 3 mg tablet 3 mg PO HS 06/30/24
therapeutic multivitamin 1 tab PO DAILY 06/30/24
Vital Signs and Labs
-
Vital Signs and Labs:
Vital Signs
Temp Pulse Resp BP Pulse Ox
33.5 C L 67 16 94/50 96
06/30/24 13:01 06/30/24 13:00 06/30/24 13:00 06/30/24 12:55 06/30/24 13:00
Lab Results
06/30/24 10:22
06/30/24 10:22
Sodium 136 mmol/L (135-145) 06/30/24 10:22
Potassium 4.5 mmol/L (3.5-5.1) 06/30/24 10:22
BUN 23 mg/dl (9-20) H 06/30/24 10:22
Glucose 167 mg/dl (70-99) H 06/30/24 10:22
Calcium 9.7 mg/dl (8.4-10.2) 06/30/24 10:22
Medications
-
Medications:
Generic Name Dose Route Start Last Admin
Trade Name Freq PRN Reason Stop Dose Admin
Atropine Sulfate 1 mg 06/30/24 11:42
Atropine Sulfate 1 Mg/10 Ml Syringe IV 07/28/24 11:41
Q4HPRN PRN
HR sustaining below 40
Dopamine HCl/Dextrose 400 mg in 250 mls @ 0 mls/hr 06/30/24 11:00 06/30/24 11:01
Dopamine 400 Mg IV 250 mls
PER PROTOCOL MARIKA Administration
Protocol
Per Protocol
Home Medications
-
Home Medications
acetaminophen 325 mg tablet (Tylenol) 650 mg PO BIDPRN PRN mild pain/fever 06/30/24
bumetanide 1 mg tablet 1 mg PO BIDPRN PRN fluid retention 06/30/24
buprenorphine HCl 8 mg sublingual tablet 8 mg sublingual DAILY@0700 06/30/24
metformin 500 mg tablet 500 mg PO BID 06/30/24
risperidone 3 mg tablet 3 mg PO HS 06/30/24
therapeutic multivitamin 1 tab PO DAILY 06/30/24
[2024-06-30 13:08] LABS: Free T4 1.41 ng/dl (0.78-2.19)
[2024-06-30 13:22] LABS: Cortisol, Random 15.2 ug/dl; TSH 1.23 uIU/ml (0.47-4.68)
--- NOTE | 2024-06-30 14:38 | EDRN ---
attempted to call report to ICU, RN that will be receiving patient is on lunch and discharge coordinator is medicating. State they will call me back. Patient getting bedside Echo. Per ED Director, if not called back by the time ECHO is complete, bring patient
upstairs and give bedside report.
[2024-06-30 14:58] LABS: Troponin I 0.034 ng/ml
--- NOTE | 2024-06-30 15:14 | EDRN ---
While getting ECHO, patient pulled out not only his 18G US guided IV, but dislodged the PICC. Portable XRAY taken to reconfirm PICC placement. IV called to exchanged PICC line. All infusions stopped at this time. Mendenhall remains in place. Soft
restraints placed, Alfredo Chaney placing order.
[2024-06-30 15:18] LABS: Vitamin B12 853 pg/ml (239-931)
--- NOTE | 2024-06-30 16:28 | W.PN.UPDATE ---
Update Note
Progress Note Update
Not requiring dopamine anymore and not hypotensive. Transferred to stepdown
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
--- NOTE | 2024-06-30 16:40 | PTCARENOTE ---
Pt arrived via stretcher with RN, with bilateral soft wrist restraints. Monitored with 2 guards & his left ankle shackled to the stretcher. He is awake but slow to respond. RN having to repeat simple questions. IV team arrived to adjust his left
upper arm PICC line that he partially dislodged in the ED. He was placed on the monitor, oriented to the ICU and the plan of care.
--- NOTE | 2024-06-30 17:00 | PTCARENOTE ---
CHG bath performed. Skin generally dry and flaky, predominantly on his feet. Good radial pulses. Very weak pedal pulses. Trace L/E edema. Left PICC in place awaiting verification of placement. He denied chest pain, SOB, abdominal pain. RA pulse ox
95%. Breath sounds CTA. +BSX4. Indwelling rubin catheter secured with Stat lock. +BSX4. He again was informed of the plan of care.
--- NOTE | 2024-06-30 17:24 | VATNOTE ---
PICC line with tip over the SVC per radiology report. PCN notified OK to use, made aware that new tubing should be spiked prior to connecting fluids or meds to PICC and all ipsilateral IVs should be removed.
[2024-06-30 17:40] LABS: B.E. 4.8 mmol/L; HCO3 29.9 mmol/L (21-28); O2 Saturation % 87.1 % (94-98); PCO2 45 mmHg (35-48); pH 7.43 (7.35-7.45)
[2024-06-30 17:43] LABS: PO2 54 mmHg (83-108)
--- NOTE | 2024-06-30 18:00 | PTCARENOTE ---
Removed pulse oximetry probe from his finger and managed to pull his rubin catheter tubing from the stat lock. MITTS placed on pt after explaining why I was applying them. Remaining warmed IVF infusing as ordered via white port of Left PICC. Vincenzo
hugger intact. He is increasingly restless.
[2024-06-30] MEDS: LOVENOX 40 MG SC (18:35)
[2024-06-30] MEDS: DEXTROSE 50% SYRINGE 12.5 GRAMS IV ×3 (18:44→23:22)
[2024-06-30 18:52] LABS: Glucose - Point of Care 63 mg/dl (70-99)
[2024-06-30 19:17] LABS: Glucose - Point of Care 100 mg/dl (70-99)
[2024-06-30 20:08] LABS: Amphetamines Negative (Negative); Barbiturates Negative (Negative); Benzodiazepines Negative (Negative); Buprenorphine Positive (Negative); Cocaine Negative (Negative); Marijuana Negative (Negative); Methadone Negative (Negative); Methamphetamines Negative (Negative); Opiates Negative (Negative); Phencyclidine Negative (Negative); Tricyclic Antidepressants Negative (Negative)
--- NOTE | 2024-06-30 20:30 | PTCARENOTE ---
Pt received start of shift. HR SR w/ 1st degree AV block/Wenkebach on telemetry. Pt disoriented to time and place, oriented to self. Pt able to answer simple questions, slow speech. Eyes track when being spoken to. Pupils 2mm b/l, reactive but
sluggish. On RA, SpO2 97%. Positive bowel sounds. Vincenzo hugger in place. Ordered volume of warmed NSS via [place] device finished infusing. Mendenhall draining clear yellow urine. B/l wrist restraints and mitts in place. Pt restless in bed. When asked if
in pain, pt answers no.
Start of shift, pt blood sugar 63. Hypoglycemic protocol initiated, 1/2 amp dextrose - see AUG/worklist. Recheck blood sugar 100, protocol followed.
At 2009, pt temp 97.2. Vincenzo hugger set to ambient temperature.
[2024-06-30 20:33] LABS: Fentanyl, Urine Negative (Negative)
[2024-06-30 21:20] LABS: Glucose - Point of Care 63 mg/dl (70-99)
--- NOTE | 2024-06-30 21:25 | PTCARENOTE ---
Blood sugar at 2108 63, hypoglycemic protocol - 1/2 amp dextrose (see MAR). Recheck in 15min, blood sugar 123.
[2024-06-30 21:35] LABS: Glucose - Point of Care 123 mg/dl (70-99)
--- NOTE | 2024-06-30 22:01 | W.PN.UPDATE ---
Update Note
Progress Note Update
Called to bedside that patient was seizing. Seizure had broke before I was able to arrive. Total seizure time 2127 to 2128. According to nurse patient as full body rhythmic jerking and unresponsive. Case discussed with neurology. Labs sent.
Keppra started. Patient's neuro status post seizure consistent with baseline since hospital admission. Xray order for concern of aspiration.
[2024-06-30] MEDS: KEPPRA 1000 MG IV (22:03)
[2024-06-30 22:31] LABS: Creatine Phosphokinase 192 U/L (55-170); Magnesium 1.7 mg/dl (1.6-2.3)
[2024-06-30 22:40] LABS: Troponin I 0.037 ng/ml
--- NOTE | 2024-06-30 22:40 | PTCARENOTE ---
Around 21:28:50 pt with full body seizure-like activity for a little under a minute. ARCHITECTURAL TECHNOLOGIST Domo Giraldo at bedside. Neurology contacted. Pt with increasingly labored and tachypneic breathing, SpO2 80s - 15L non-rebreather placed. Not responsive to
name. Pt suctioned orally for very small amount clear spit. Labs drawn and sent.
Pt breathing decreasingly labored, SpO2 98%, weaned down to 5L nonrebreather. Pt restless in bed. Responding to name but no longer saying yes/no or nodding/shaking head. IV Keppra per order - see AUG.
[2024-06-30 22:47] LABS: Prolactin 70.3 ng/ml (3.7-17.9)
[2024-06-30] MEDS: LR 500 IV (23:20)
[2024-06-30] MEDS: MAGNESIUM SULFATE 102 GRAMS IV (23:25)
[2024-06-30 23:27] LABS: Glucose - Point of Care 58 mg/dl (70-99)
[2024-06-30] MEDS: RISPERDAL M-TAB (ORALLY DISINTEGRATING) PO (23:54)
[2024-06-30 23:56] LABS: Glucose - Point of Care 93 mg/dl (70-99)
[2024-07-01] VITALS (95 sets, daily range): BP systolic 65–150; BP diastolic 37–111; BMI 28.7
[2024-07-01] MEDS: LEVOPHED 250 IV ×2 (00:13→09:30)
[2024-07-01] MEDS: NSS 1000 IV ×2 (00:14→14:00)
--- NOTE | 2024-07-01 00:32 | PTCARENOTE ---
Reassessed pt. Pt still on non-rebreather, currently at 6L SpO2 98%. Pt less active, responding to name and saying yes/no/alright occasionally to questions. Only oriented to self. Hypotensive, SBP 60s. 500mL bolus LR ordered and administered - see
MAR. Levo infusion started. Mag 1.7, mag rider - see MAR. Lung sounds continue to be clear b/l. Extremities warm. Vincenzo hugger off, pt temp continues to be at or above goal.
Blood sugar 58 on recheck - see hypoglycemia worklist intervention.
[2024-07-01] MEDS: DEXTROSE 50% SYRINGE 12.5 GRAMS IV ×2 (01:35→04:43)
[2024-07-01 01:40] LABS: Glucose - Point of Care 67 mg/dl (70-99)
[2024-07-01 02:07] LABS: Glucose - Point of Care 97 mg/dl (70-99)
[2024-07-01 03:23] LABS: Folate 15.9 ng/ml (2.76-20); Vitamin B12 881 pg/ml (239-931)
--- NOTE | 2024-07-01 04:51 | PTCARENOTE ---
Pt drowsy, but arousable. Pt responding verbally more - still only yes/no/alright. Neuro otherwise unchanged. Vincenzo hugger resumed for temperature of 96.2. All extremities warm. Blood sugar low - PRN dextrose (see hypoglycemia worklist and MAR).
[2024-07-01 04:53] LABS: Glucose - Point of Care 68 mg/dl (70-99)
[2024-07-01 05:14] LABS: Glucose - Point of Care 106 mg/dl (70-99)
[2024-07-01] MEDS: D10W 1000 IV (05:43)
--- NOTE | 2024-07-01 05:59 | PTCARENOTE ---
Pt responding verbally more - still only yes/no/alright. Neuro otherwise unchanged. Vincenzo marker resumed for temperature of 96.2. All extremities warm. Blood sugar low - PRN dextrose (see hypoglycemia worklist and MAR).
TT FLARE MAN Lorene angel about repeated low sugars - dextrose gtt started.
[2024-07-01 06:14] LABS: Glucose - Point of Care 87 mg/dl (70-99)
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
--- NOTE | 2024-07-01 08:00 | PTCARENOTE ---
Resumed care of patient from previous RN. Drowsy. but arousable. Pupils 2mm b/l, reactive but sluggish. Oriented to self and states he is in hospital. doesnt know which one. knows his birthday but not current month. Vincenzo hugger turned off. Temp
98.4. HR SR/SB w/ 1st degree AV block and BBB. HR 40-60s. On RA, SpO2 93%. Positive bowel sounds. [place] draining clear yellow urine. B/l wrist restraints and mitts in place. In for EEG, brain MRI and stim test today.Currently getting Q2 accuchecks.
stable blood sugars. For swallow eval by speech today. 2 guards in room with patient. will continue to monitor.
[2024-07-01 08:20] LABS: Glucose - Point of Care 99 mg/dl (70-99)
--- NOTE | 2024-07-01 08:45 | W.PN.CD ---
Today's Communication / Plan
-
Significant bradycardia and HB resolved with rewarming
No obvious need for PPM at this time
Cont to monitor tele while in hospital
We will sign off please call with question/concerns.
Impression / Plan
-
Hypothermia: significant, cause unclear
-blood cx pending
-w/u per primary team
Bradycardia, hypotension:
-in setting of significant hypothermia
-Heart block and bradycardia improved significantly with warming
- no urgent need for PPM at this time
-follow telemetry
DM:
-on metformin as OP
-serum glucose 167
Subjective: NAEO no new complaints
Echo CONCLUSIONS
Normal biventricular size and systolic function without regional wall motion
abnormality.
Mitral annular calcification.
Mild tricuspid regurgitation.
No pericardial effusion.
No prior study available for comparison.
Physical Exam
Vital Signs/Labs
Vital Signs
Temp Pulse Resp BP Pulse Ox
97.6 F 59 9 104/67 96
07/01/24 08:00 07/01/24 06:45 07/01/24 06:45 07/01/24 06:45 07/01/24 06:45
06/30/24 07/01/24 07/02/24
06:59 06:59 06:59
Actual Weight 211 lb 3.245 oz
06/30/24 10:22
06/30/24 10:22
Magnesium Cancelled 06/30/24 23:00
TSH 1.23 uIU/ml (0.47-4.68) 06/30/24 10:22
Free T4 1.41 ng/dl (0.78-2.19) 06/30/24 10:22
LAB Results
06/30/24 06/30/24 06/30/24
10:22 14:10 17:45
Troponin I 0.039 H* 0.034 Cancelled
06/30/24
21:52
Troponin I 0.037 H*
Physical Exam
Constitutional: No acute distress and Comfortable
EENT: Anicteric
Cardiovascular: Rhythm & rate is regular and Pedal edema is absent
Respiratory: Respiratory effort normal and Lungs clear to auscul.
GI: Soft
Neuro/Psych: Alert and Oriented
Data Reviewed
-
Date of Service: July 01, 2024
EKG: Tracing Personally Visualized and interpreted (sr)
Echo: Report Reviewed by me
Labs: Labs Reviewed by me
[2024-07-01] MEDS: THERAGRAN PO (08:50)
[2024-07-01] MEDS: KEPPRA 500 MG IV ×2 (08:59→19:43)
[2024-07-01] MEDS: SUBUTEX 8 MG SL (09:02)
[2024-07-01 10:25] LABS: Glucose - Point of Care 102 mg/dl (70-99)
--- NOTE | 2024-07-01 10:40 | PTCARENOTE ---
speech cleared patient for thin liquids and pureed diet. weaned 8 mcg levo down to 2 mcg.
--- NOTE | 2024-07-01 10:40 | W.PN.HOSP.TC ---
Today's Communication/Plan
-
Await EEG
MRI of the brain
Start Unasyn
Follow clinical response
Wean pressors as tolerated
Assessment / Plan
Assessment / Plan
68-year-old from correctional facility with speech abnormality, confusion, off balance. He was hypothermic. Has been going on for the past 2 weeks gradually declining per retail loss prevention officer at bedside .
He is usually 'very loud and boisterous' per retail loss prevention officer at bedside
Echo 06/30/2024-normal BiV size and systolic function. Mild annular calcification, mild TR
Slightly more awake speech slightly more coherent today
# Speech abnormality/confusion
Had a seizure last night and started on Keppra
EEG done today
MRI of the brain pending
Neurology following
Urine drug screen negative
# Symptomatic bradycardia
Off dopamine
Echo normal
Cardiology signed off
Likely secondary to hypothermia
Nonischemic myocardial injury
Unclear why he is on Bumex as outpatient
# Shock secondary to bradycardia versus other
Check blood cultures and look for septic source
Repeat chest x-ray with interstitial lung changes likely aspiration related pneumonia
Start Unasyn
# Shock-unclear etiology possibly septic shock
Continue Levophed and wean as tolerated
Treat aspiration pneumonia
# Hypothermia-no septic source on admission
Normal TSH and cortisol level
Bear hugger
Cosyntropin stim test pending
# Diabetes-continue metformin
Accu-Cheks and sliding scale coverage
# Elevated PSA-was supposed to follow-up with Dr. Bartholomew
# DVT prophylaxis-Lovenox
# Full code
# Pur�ed diet ordered per speech
Discussed with nursing at bedside
Anticipated Discharge: > 48 hours
Subjective/Interval History
-
Date of Service: July 01, 2024
Objective Data
-
Vital Signs:
Vital Signs
Temp Pulse Resp BP Pulse Ox
98.3 F 62 9 104/67 95
07/01/24 09:05 07/01/24 09:05 07/01/24 06:45 07/01/24 06:45 07/01/24 09:05
I&O
06/30/24 07/01/24 07/02/24
06:59 06:59 06:59
Intake Total 1172.0 / 1172.0 476.0 / 476.0
Output Total 2250 / 2250 205 / 205
Balance -1078.0 / -1078.0 271.0 / 271.0
[2024-07-01] MEDS: CORTROSYN 0.25 MG IV (10:46)
[2024-07-01] MEDS: NSS (PRESERVATIVE FREE) 1 ML IV (10:46)
--- NOTE | 2024-07-01 10:52 | EEG.RPT ---
Electroencephalogram Report
Recording
Date of EE07/01/24
Type of EEG: Routine
Length of EEG recordin minutes
Done with Video Recording: Yes
Patient Status: Inpatient
Recording Conditions: Awake, Drowsy and Asleep
Hyperventilation Performed: No
Photic Stimulation Performed: Yes
Report
LESS THAN 1 HOUR EEG REPORT
LESS THAN 1 HOUR EEG INTERPRETATION:
Unremarkable EEG for age
CLINICAL CORRELATION:
A normal EEG does not rule out a diagnosis of epilepsy. If clinical suspicion for seizure persists, a prolonged recording may be warranted.
Clinical correlation is advised.
METHODS:
A 21 channel digitized electroencephalogram (EEG) was performed using the 10/20 international system of electrode placement and one-lead of ECG recorded in the ICU. Video was performed. [employer]ental[employer]G system utilized.
ELECTROENCEPHALOGRAPHER IMPRESSION(S):
Quality of study
Good
Background
There was an unremarkable anterior-posterior voltage gradient of alpha frequency. With eye opening the background activity changed to a low voltage mixture of frequencies. There were no significant asymmetries of background activity noted.
Sleep
Drowsiness present
Stage I present
Stage 2 present
Hyperventilation
Not performed
Photic Stimulation
No driving
ECG
Normal sinus rhythm
--- NOTE | 2024-07-01 11:19 | PTOTSP ---
Dysphagia Evaluation
Patient presents with signs concerning for moderate oral dysphagia suspected to be exacerbated by acute cognitive changes. No signs of pharyngeal dysphagia or aspiration present but cannot rule out bedside.
Dysphonia and dysarthria observed that impacted speech intelligibility. Language impairments also present (i.e., decreased simple command following, single word concrete responses with reduced elaboration). CT Head negative. MRI Brain pending.
Encephalopathy suspected.
Recommend:
1. IDDSI Level 4 Puree, Thin Liquids
2. Medications: as best tolerated
3. Strategies: upright to 90 degrees, PO only when awake/alert, full supervision/assist, check for oral residue and give verbal cue or liquid wash as needed, reflux precautions
4. Oral care 3x daily
5. Dysphagia therapy at the acute care level to trial advanced solids if/when appropriate and determine if instrumental swallowing assessment warranted.
6. Will complete speech/language/cognitive evaluation pending results of MRI of Brain.
--- NOTE | 2024-07-01 11:51 | CM ---
CM following re: discharge planning.
Reviewed pt's chart, met with pt. Two guards at bedside.
Pt is a 68 year old male, admitted with primary dx of Symptomatic bradycardia, Hypothermia.
Pt admitted from [facility] and per guards pt will return back to [facility] when medically stable.
[facility] nursing report: [phone]
Discharge instructions fax: [phone]
D/C plan: return back to [facility] when medically stable.
[2024-07-01 12:12] LABS: Glucose - Point of Care 81 mg/dl (70-99)
[2024-07-01] MEDS: UNASYN IV ×3 (12:16→23:01)
[2024-07-01 12:52] LABS: Blood Urea Nitrogen 16 mg/dl (9-20); Calcium 8.8 mg/dl (8.4-10.2); Carbon Dioxide 29 mmol/L (22-30); Chloride 101 mmol/L (98-107); Estimated Creatinine Clearance 84 ml/min; Glucose 92 mg/dl (70-99); Potassium 4.1 mmol/L (3.5-5.1); Sodium 134 mmol/L (135-145); eGFR > 60.00
[2024-07-01 12:55] LABS: ACTH Stim Cortisol 30 Min 26.1 ug/dl
[2024-07-01 13:20] LABS: Syphilis/T. pallidum Ab Reflex Negative (Negative)
[2024-07-01 13:21] LABS: ACTH Stim Cortisol 60 Min 29.5 ug/dl
[2024-07-01 13:24] LABS: Glycohemoglobin (HgbA1c) 6.5 % (4.0-5.6)
--- NOTE | 2024-07-01 15:14 | W.PN.NEURO.1 ---
Today's Communication / Plan
-
.
Subjective/Objective
Subjective Data
Date of Service: July 01, 2024
Neurology follow-up note.
24h events: seizure
According to EMR patient had a seizure around 9 pm on 06/30/24 lasting around 1 minute presenting with full body rhythmic jerking movements. Ms. Fenton was started on Keppra. Unable to have brain MRI due to reported metal in his body.
Labs: Mg-1.7, Ck-192, prolactin�70.3, normal TFTs.
ua tox-pending.
CT head wo contrast-diffuse cortical atrophy
Routine EEG(07/01/2024) normal.
PMH: elevated PSA, DM, CHF, opioid use disorder
PSH: unknown
SH:[facility], former smoker
FH:mother-cancer
All:NKDA
ROS:Limited
General: Restrained.
Cardio: Regular rate . Extremities are without cyanosis or edema.
Neuro:
Mental Status: Alert, oriented to name, . Follows simple requests intermittently. Nonfluent. Most of the questions 'yes' and 'now'
Cranial Nerves: Left exodeviation in primary gaze. Right ALEK pacification. Limited extraocular movement visual field exam due to cooperation.
Motor: Moves all limbs within bed plane
Reflexes: Moderate exam due to restraints
Sensory: Limited exam due to poor attention.
Coordination: No tremors myoclonic movements
Gait: deferred
Assessment and Plan:
I. Seizure.
II. Encephalopathy.
III. Expressive aphasia
-Avoid hypoxia and medications known to lower seizure threshold
-Please please follow-up thiamine level and urine tox
-Continue Keppra 500 mg twice daily
-Please obtain medical records from Rosemary Mendoza MD
-DVT prophylaxis.
I personally reviewed all radiology and labs along with past medical records pertinent to current medical problems. Total time spent in patient care is 35 minutes.
Thank you for allowing us to participate in the care of this patient. We will continue to follow. Please do not hesitate to contact us with any questions or concerns.
Objective Data
Vital Signs
Temp Pulse Resp BP Pulse Ox
36.4 C 60 11 133/53 92
07/01/24 11:54 07/01/24 13:30 07/01/24 13:30 07/01/24 13:30 07/01/24 11:45
Lab Results
06/30/24 10:22
07/01/24 12:15
Sodium 134 mmol/L (135-145) L 07/01/24 12:15
Potassium 4.1 mmol/L (3.5-5.1) 07/01/24 12:15
BUN 16 mg/dl (9-20) 07/01/24 12:15
Glucose 92 mg/dl (70-99) 07/01/24 12:15
Calcium 8.8 mg/dl (8.4-10.2) 07/01/24 12:15
Vitamin B12 881 pg/ml (239-931) 06/30/24 21:59
Ur Buprenorphine Cancelled 06/30/24 15:31
Patient Allergies
No Known Allergies Allergy (Unverified 06/30/24 09:20)
Vital Signs and Labs
-
Vital Signs and Labs:
Vital Signs
Temp Pulse Resp BP Pulse Ox
36.4 C 60 11 133/53 92
07/01/24 11:54 07/01/24 13:30 07/01/24 13:30 07/01/24 13:30 07/01/24 11:45
Lab Results
06/30/24 10:22
07/01/24 12:15
Sodium 134 mmol/L (135-145) L 07/01/24 12:15
Potassium 4.1 mmol/L (3.5-5.1) 07/01/24 12:15
BUN 16 mg/dl (9-20) 07/01/24 12:15
Glucose 92 mg/dl (70-99) 07/01/24 12:15
Calcium 8.8 mg/dl (8.4-10.2) 07/01/24 12:15
Vitamin B12 881 pg/ml (239-931) 06/30/24 21:59
Ur Buprenorphine Cancelled 06/30/24 15:31
Medications
-
Medications:
Generic Name Dose Route Start Last Admin
Trade Name Freq PRN Reason Stop Dose Admin
Acetaminophen 650 mg 06/30/24 16:07
Acetaminophen 325 Mg Tablet PO 07/28/24 16:06
BIDPRN PRN
mild pain/fever
Atropine Sulfate 1 mg 06/30/24 11:42
Atropine Sulfate 1 Mg/10 Ml Syringe IV 07/28/24 11:41
Q4HPRN PRN
HR sustaining below 40
Buprenorphine 8 mg 07/01/24 07:00 07/01/24 09:02
Buprenorphine 8 Mg Sl Tablet SL 07/15/24 06:59 8 mg
DAILY@0700 MARIKA Administration
Dextrose 12.5 grams 06/30/24 16:07 07/01/24 04:43
Dextrose 50% (0.5 Grams/Ml) 50 Ml Syringe IV 07/28/24 16:06 12.5 grams
[id number] PRN Administration
hypoglycemia
Protocol
Enoxaparin Sodium 40 mg 06/30/24 18:00 06/30/24 18:35
Enoxaparin Sodium 40 Mg/0.4 Ml Syringe SC 07/28/24 17:59 40 mg
QPM MARIKA Administration
Glucagon 1 mg 06/30/24 16:07
Glucagon 1 Mg Vial IM 07/28/24 16:06
PRN PRN
hypoglycemia
Protocol
Norepinephrine Bitartrate 4 mg in 250 mls @ 0 mls/hr 06/30/24 23:15 07/01/24 09:30
Levophed IV 250 mls
PER PROTOCOL MARIKA Administration
Protocol
Per Protocol
Sodium Chloride 1,000 mls @ 75 mls/hr 06/30/24 23:45 07/01/24 14:00
Nss IV 1,000 mls
.[id number] MARIKA Administration
Dextrose 1,000 mls @ 60 mls/hr 07/01/24 06:00 07/01/24 05:43
D10w IV 07/01/24 22:39 1,000 mls
.[id number] MARIKA Administration
Ampicillin Sodium/Sulbactam 120 mls @ 240 mls/hr 07/01/24 12:00 07/01/24 12:16
Sodium 3 gm/ Sodium Chloride IV 120 mls
Q6H MARIKA Administration
Insulin Aspart 0 units 06/30/24 16:30 07/01/24 12:13
Insulin Aspart Low Resistance 300 Units/3 Ml Pen.Injctr SC 07/28/24 16:29 Not Given
AC MARIKA
Protocol
Levetiracetam 500 mg 07/01/24 08:00 07/01/24 08:59
Levetiracetam (100 Mg/Ml) 500 Mg/5 Ml Vial IV 07/29/24 07:59 500 mg
Q12 MARIKA Administration
Metformin HCl 500 mg 07/01/24 08:00 07/01/24 08:50
Metformin 500 Mg Regular Release Tablet PO 07/29/24 07:59 Not Given
BID@0800,1700 MARIKA
Midodrine 5 mg 07/01/24 16:00
Midodrine 5 Mg Tablet PO 07/29/24 15:59
Q8 MARIKA
Multivitamins Therapeutic 1 tablet 07/01/24 08:00 07/01/24 08:50
Multivitamin Tablet PO 07/29/24 07:59 Not Given
DAILY MARIKA
Risperidone 3 mg 06/30/24 22:00 06/30/24 23:54
Risperidone 1 Mg Orally Disintegrating Tablet PO 07/28/24 21:59 Not Given
HS MARIKA
Sodium Chloride 0 flush 06/30/24 17:00
Sodium Chloride 0.9% (Flush) Syringe IV 07/28/24 16:59
PER PROTOCOL MARIKA
Home Medications
-
Home Medications
acetaminophen 325 mg tablet (Tylenol) 650 mg PO BIDPRN PRN mild pain/fever 06/30/24
bumetanide 1 mg tablet 1 mg PO BIDPRN PRN fluid retention 06/30/24
buprenorphine HCl 8 mg sublingual tablet 8 mg sublingual DAILY@0700 SUBSTANCE USE 06/30/24
metformin 500 mg tablet 500 mg PO BID Diabetes 06/30/24
risperidone 3 mg tablet 3 mg PO HS Mental Health/Anxiety 06/30/24
therapeutic multivitamin 1 tab PO DAILY Supplement 06/30/24
[2024-07-01 15:29] LABS: HIV Combo Negative (Negative)
[2024-07-01] MEDS: ProAmatine 5 MG PO ×2 (16:58→22:54)
[2024-07-01] MEDS: LOVENOX 40 MG SC (16:59)
[2024-07-01 17:09] LABS: Glucose - Point of Care 86 mg/dl (70-99)
[2024-07-01 20:19] LABS: Glucose - Point of Care 119 mg/dl (70-99)
[2024-07-01] MEDS: RISPERDAL M-TAB (ORALLY DISINTEGRATING) 3 MG PO (22:53)
[2024-07-02] VITALS (15 sets, daily range): BP systolic 89–134; BP diastolic 56–79; BMI 29.0
--- NOTE | 2024-07-02 00:41 | PTCARENOTE ---
Pt assessed. Generally sleeping but arouses to speech. PERRLA. Moves all extremities. Denies loss of sensation. Pt is disoriented to time. Flat affect noted. RA. Pt CTABL. While awake pt HR in the 50's to 60's. While asleep pt bradys to the 30's
very briefly but returns to baseline. Around 0000hrs pt noted to have dipped to 28 on monitor. Frequent drops in H with pauses/ heart block noted. House provider notified. Thus far, no changes to plan of care relayed to this RN. Abd soft nontender.
[place] draining clear yellow. No open area to skin noted. No complaints or s/s of distress assessed. thus far. Will continue to monitor.
--- NOTE | 2024-07-02 02:49 | W.PN.UPDATE ---
Update Note
Progress Note Update
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 Patient without complaints and sleeping. Advised RN EKG and to follow PRN order for Atropine. Cardiology notes noted.
Temp 97.1 , 96/63, 14, 96% RA.
RN reports Oxygen de-sat to Mid 80's at one time which came up on its own 96% RA, unknown hx of sleep apnea.
[2024-07-02 04:27] LABS: Hematocrit 34.3 % (39.0-52.0); Hemoglobin 11.1 g/dL (13.0-18.0); Mean Corp Hgb Conc. 32.4 g/dL (33.0-37.0); Mean Corpuscular Hgb 29.7 pg (27.0-31.0); Mean Corpuscular Volume 91.7 fL (80.0-94.0); Mean Platelet Volume 13.7 fL (7.4-10.4); Platelet Count 131 10^3/uL (130-400); Red Blood Cell Count 3.74 10^6/uL (4.70-6.10); Red Cell Dist. Width 13.2 % (11.5-14.5); White Blood Cell Count 4.8 10^3/uL (4.8-10.8)
[2024-07-02 04:46] LABS: Blood Urea Nitrogen 15 mg/dl (9-20); Calcium 8.6 mg/dl (8.4-10.2); Carbon Dioxide 30 mmol/L (22-30); Chloride 103 mmol/L (98-107); Estimated Creatinine Clearance 75 ml/min; Glucose 65 mg/dl (70-99); Potassium 4.2 mmol/L (3.5-5.1); Sodium 138 mmol/L (135-145); eGFR > 60.00
[2024-07-02] MEDS: NSS 1000 IV (05:38)
[2024-07-02] MEDS: UNASYN IV ×4 (05:38→23:22)
--- NOTE | 2024-07-02 06:03 | PTCARENOTE ---
Pt has not had another episode of bradycardia with pause/heart block. HR maintained in the upper 40's to 60's. 2L O2 via NC remains in plaace. No s/s of distress assessed/
[2024-07-02] MEDS: THERAGRAN 1 TABLET PO (07:58)
[2024-07-02] MEDS: ProAmatine 5 MG PO ×3 (07:58→23:22)
[2024-07-02] MEDS: KEPPRA 500 MG IV ×2 (07:59→21:28)
[2024-07-02] MEDS: SUBUTEX 8 MG SL (08:08)
[2024-07-02 08:23] LABS: Glucose - Point of Care 69 mg/dl (70-99)
[2024-07-02 08:42] LABS: Glucose - Point of Care 69 mg/dl (70-99)
--- NOTE | 2024-07-02 09:13 | PTOTSP ---
Dysphagia Therapy
Impression: Mild oral stage differences. No signs of pharyngeal dysphagia or aspiration. Attention improved compared to initiate evaluation.
Recommend:
1. IDDSI Level 7 Regular, Thin Liquids
2. Medications: as best tolerated
3. Strategies: upright to 90 degrees, PO only when awake/alert, full supervision, check for oral residue and give verbal cue or liquid wash as needed, reflux precautions
4. Oral care 3x daily
5. Brief dysphagia therapy f/u at the acute care level for instruction in compensatory swallowing strategies.
[2024-07-02 09:16] LABS: Glucose - Point of Care 78 mg/dl (70-99)
--- NOTE | 2024-07-02 09:18 | PTOTSP ---
Dysphagia Therapy
Impression: Mild oral stage differences. No signs of pharyngeal dysphagia or aspiration. Attention/cognitive status improved compared to initial evaluation.
Recommend:
1. IDDSI Level 7 Regular, Thin Liquids
2. Medications: as best tolerated
3. Strategies: upright to 90 degrees, PO only when awake/alert, full supervision, check for oral residue and give verbal cue or liquid wash as needed, reflux precautions
4. Oral care 3x daily
5. Brief dysphagia therapy f/u at the acute care level for instruction in compensatory swallowing strategies.
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
--- NOTE | 2024-07-02 11:10 | W.PN.UPDATE ---
Update Note
Progress Note Update
EP Update Note:
Dr. Medina had me review telemetry. The bradycardia we are now seeing is different from admit AV block. He is now having the bradycardia we see commonlay associated with sleep apnea. Reviewed with nursing and the bradycardia is all happening while
asleep or not responsive. He also noted some desaturations.
No pacing is indicated at this time.
I do suggest a formal sleep apnea evaluation and treatment if needed.
Please call us back if further input will be helpful.
35 min spent today caring for pt: extensive tele review, time reviewing with nursing staff, time communicating with hospitalist, and time documenting.
[2024-07-02 12:36] LABS: Glucose - Point of Care 100 mg/dl (70-99)
--- NOTE | 2024-07-02 12:44 | W.PN.NEURO.1 ---
Today's Communication / Plan
-
.
Subjective/Objective
Subjective Data
Date of Service: July 02, 2024
Neurology follow-up note.
24h events: Continues to be hypothermic and hypotensive. Of dopamine since 06/30/2024 and Levophed since 07/01/2024 on midodrine. Tolerates Keppra well. Noted reports of recurrent seizures
Mr. Fenton states that he has not had seizures in the past
CT head wo contrast-diffuse cortical atrophy
Routine EEG(07/01/2024) normal.
PMH: elevated PSA, DM, CHF, opioid use disorder
PSH: unknown
SH:active inmate at [facility], former smoker
FH:mother-cancer
All:NKDA
ROS: Negative for headache, weakness, change in vision strength.
General: Restrained.
Cardio: Regular rate . Extremities are without cyanosis or edema.
Neuro:
Mental Status: Alert, oriented to self, 2024. Guarded affect. Nonfluent. Follows requests consistently. No hemineglect. Preserved attention and comprehension.
Cranial Nerves: Left exodeviation in primary gaze. Right pupillary opacification, extraocular movement intact. Blink to threat bilaterally. No facial weakness. Hearing is preserved. No dysarthria
Motor: Moves all limbs within bed plane
Reflexes: Limited exam due to restraints.
Sensory: Localizes noxious stimuli.
Coordination: No tremors myoclonic movements
Gait: deferred
Assessment and Plan:
I. Probable first unprovoked seizure.
II. Encephalopathy.
III. Expressive aphasia
-Avoid hypoxia and medications known to lower seizure threshold
-Please please follow-up thiamine level and urine tox
-Continue Keppra 500 mg twice daily for now until reasons for prior phenobarbital therapy clarified
-Please obtain medical records from Rosemary Mendoza MD
-DVT prophylaxis.
-Outpatient neurology follow-up
-Please recall neurology services any questions or concerns
I personally reviewed all radiology and labs along with past medical records pertinent to current medical problems. Total time spent in patient care is 35 minutes.
Thank you for allowing us to participate in the care of this patient. Please do not hesitate to contact us with any questions or concerns.
Objective Data
Vital Signs
Temp Pulse Resp BP Pulse Ox
36.1 C L 61 13 96/63 95
07/02/24 11:30 07/01/24 22:54 07/01/24 21:15 07/01/24 22:54 07/02/24 08:05
Lab Results
07/02/24 03:53
07/02/24 03:53
Sodium 138 mmol/L (135-145) 07/02/24 03:53
Potassium 4.2 mmol/L (3.5-5.1) 07/02/24 03:53
BUN 15 mg/dl (9-20) 07/02/24 03:53
Glucose 65 mg/dl (70-99) L 07/02/24 03:53
Calcium 8.6 mg/dl (8.4-10.2) 07/02/24 03:53
Vitamin B12 881 pg/ml (239-931) 06/30/24 21:59
Ur Buprenorphine Cancelled 06/30/24 21:50
Patient Allergies
No Known Allergies Allergy (Unverified 06/30/24 09:20)
Vital Signs and Labs
-
Vital Signs and Labs:
Vital Signs
Temp Pulse Resp BP Pulse Ox
36.1 C L 61 13 96/63 95
07/02/24 11:30 07/01/24 22:54 07/01/24 21:15 07/01/24 22:54 07/02/24 08:05
Lab Results
07/02/24 03:53
07/02/24 03:53
Sodium 138 mmol/L (135-145) 07/02/24 03:53
Potassium 4.2 mmol/L (3.5-5.1) 07/02/24 03:53
BUN 15 mg/dl (9-20) 07/02/24 03:53
Glucose 65 mg/dl (70-99) L 07/02/24 03:53
Calcium 8.6 mg/dl (8.4-10.2) 07/02/24 03:53
Vitamin B12 881 pg/ml (239-931) 06/30/24 21:59
Ur Buprenorphine Cancelled 06/30/24 21:50
Medications
-
Medications:
Generic Name Dose Route Start Last Admin
Trade Name Freq PRN Reason Stop Dose Admin
Acetaminophen 650 mg 06/30/24 16:07
Acetaminophen 325 Mg Tablet PO 07/28/24 16:06
BIDPRN PRN
mild pain/fever
Atropine Sulfate 1 mg 06/30/24 11:42
Atropine Sulfate 1 Mg/10 Ml Syringe IV 07/28/24 11:41
Q4HPRN PRN
HR sustaining below 40
Buprenorphine 8 mg 07/01/24 07:00 07/02/24 08:08
Buprenorphine 8 Mg Sl Tablet SL 07/15/24 06:59 8 mg
DAILY@0700 MARIKA Administration
Dextrose 12.5 grams 06/30/24 16:07 07/01/24 04:43
Dextrose 50% (0.5 Grams/Ml) 50 Ml Syringe IV 07/28/24 16:06 12.5 grams
[id number] PRN Administration
hypoglycemia
Protocol
Enoxaparin Sodium 40 mg 06/30/24 18:00 07/01/24 16:59
Enoxaparin Sodium 40 Mg/0.4 Ml Syringe SC 07/28/24 17:59 40 mg
QPM MARIKA Administration
Glucagon 1 mg 06/30/24 16:07
Glucagon 1 Mg Vial IM 07/28/24 16:06
PRN PRN
hypoglycemia
Protocol
Ampicillin Sodium/Sulbactam 120 mls @ 240 mls/hr 07/01/24 12:00 07/02/24 12:54
Sodium 3 gm/ Sodium Chloride IV 120 mls
Q6H MARIKA Administration
Insulin Aspart 0 units 06/30/24 16:30 07/02/24 12:37
Insulin Aspart Low Resistance 300 Units/3 Ml Pen.Injctr SC 07/28/24 16:29 Not Given
AC MARIKA
Protocol
Levetiracetam 500 mg 07/01/24 08:00 07/02/24 07:59
Levetiracetam (100 Mg/Ml) 500 Mg/5 Ml Vial IV 07/29/24 07:59 500 mg
Q12 MARIKA Administration
Metformin HCl 500 mg 07/01/24 08:00 07/02/24 08:00
Metformin 500 Mg Regular Release Tablet PO 07/29/24 07:59 Not Given
BID@0800,1700 MARIKA
Midodrine 5 mg 07/01/24 16:00 07/02/24 07:58
Midodrine 5 Mg Tablet PO 07/29/24 15:59 5 mg
Q8 MARIKA Administration
Multivitamins Therapeutic 1 tablet 07/01/24 08:00 07/02/24 07:58
Multivitamin Tablet PO 07/29/24 07:59 1 tablet
DAILY MARIKA Administration
Risperidone 3 mg 06/30/24 22:00 07/01/24 22:53
Risperidone 1 Mg Orally Disintegrating Tablet PO 07/28/24 21:59 3 mg
HS MARIKA Administration
Sodium Chloride 0 flush 06/30/24 17:00
Sodium Chloride 0.9% (Flush) Syringe IV 07/28/24 16:59
PER PROTOCOL MARIKA
Home Medications
-
Home Medications
acetaminophen 325 mg tablet (Tylenol) 650 mg PO BIDPRN PRN mild pain/fever 06/30/24
bumetanide 1 mg tablet 1 mg PO BIDPRN PRN fluid retention 06/30/24
buprenorphine HCl 8 mg sublingual tablet 8 mg sublingual DAILY@0700 SUBSTANCE USE 06/30/24
metformin 500 mg tablet 500 mg PO BID Diabetes 06/30/24
risperidone 3 mg tablet 3 mg PO HS Mental Health/Anxiety 06/30/24
therapeutic multivitamin 1 tab PO DAILY Supplement 06/30/24
--- NOTE | 2024-07-02 15:09 | PTCARENOTE ---
Pt received in bed @ 0700. Oriented to self. Drowsy and forgetful with flat affect. RASS -1. Sleeping at baseline but rouses with verbal and tactile stimuli. Pt cleared for regular diet by speech therapy and pt able to feed self signs of aspiration.
SaO2 98% on 3L. SaO2 observed dropped to 80s while asleep. Pt awakens and SaO2 quickly rises. Sinus barbie/Sinus rhythm with 1st degree AV block on lunchroom monitor. HR 50-60s. HR observed to 30s but did not sustain, quickly regained > 50. MAP > 65.
Mendenhall catheter removed. Condom catheter #35 applied. Left DL PICC in place.
[2024-07-02 15:52] LABS: Glucose - Point of Care 105 mg/dl (70-99)
[2024-07-02 18:00] LABS: Glucose - Point of Care 124 mg/dl (70-99)
[2024-07-02] MEDS: LOVENOX 40 MG SC (18:09)
--- NOTE | 2024-07-02 20:00 | PTCARENOTE ---
assumed care, pt arousable easily verbally, Ox3 but forgetful, pt did not know why he was hand cuffed or could not remember being in retirement, FULLER, Sinus barbie trace lower extremity edema, weak pedals, 2L NC diminished @ bases, SpO2 98%, BSx4 soft
nontender, CC#30 yellow output, skin dry and intact, L DL PICC, guards @ bedside, call mejia within reach, otherwise refer to documentation.
[2024-07-02] MEDS: RISPERDAL M-TAB (ORALLY DISINTEGRATING) 3 MG PO (21:28)
[2024-07-02 21:39] LABS: Glucose - Point of Care 106 mg/dl (70-99)
[2024-07-03] VITALS (16 sets, daily range): BP systolic 93–147; BP diastolic 58–89; PULSE 63; O2SAT 94; BMI 28.9
[2024-07-03 03:26] LABS: Glucose - Point of Care 84 mg/dl (70-99)
--- NOTE | 2024-07-03 03:54 | PTCARENOTE ---
systems reviewed, sugar 84, gave pt juice, was hypoglycemic yesterday in the AM, CHG bath, otherwise refer to documentation
[2024-07-03 04:18] LABS: Procalcitonin < 0.05 ng/ml (0.0-0.25)
[2024-07-03 04:31] LABS: Hematocrit 37.1 % (39.0-52.0); Hemoglobin 11.7 g/dL (13.0-18.0); Mean Corp Hgb Conc. 31.5 g/dL (33.0-37.0); Mean Corpuscular Hgb 29.5 pg (27.0-31.0); Mean Corpuscular Volume 93.5 fL (80.0-94.0); Mean Platelet Volume 12.9 fL (7.4-10.4); Platelet Count 122 10^3/uL (130-400); Red Blood Cell Count 3.97 10^6/uL (4.70-6.10); Red Cell Dist. Width 13.2 % (11.5-14.5); White Blood Cell Count 5.4 10^3/uL (4.8-10.8)
[2024-07-03] MEDS: SUBUTEX 8 MG SL (06:03)
[2024-07-03] MEDS: UNASYN IV ×3 (06:03→18:53)
[2024-07-03 06:18] LABS: Glucose - Point of Care 73 mg/dl (70-99)
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
[2024-07-03] MEDS: ProAmatine 5 MG PO ×2 (08:05→16:45)
[2024-07-03] MEDS: KEPPRA 500 MG IV ×2 (08:05→19:51)
[2024-07-03] MEDS: THERAGRAN 1 TABLET PO (08:06)
[2024-07-03 08:25] LABS: Glucose - Point of Care 90 mg/dl (70-99)
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
[2024-07-03 12:35] LABS: Glucose - Point of Care 92 mg/dl (70-99)
--- NOTE | 2024-07-03 13:13 | PTCARENOTE ---
incont earlier, entire bed change and CHG bath. extra covidien bed pad placed, instructed to use urinal. continent approx 1 hr later 200 ml clear yellow without diff. assessment otherwise as documented.
[2024-07-03 13:31] LABS: Lyme Antibody Screen, EIA Negative (Negative)
--- NOTE | 2024-07-03 15:46 | CON.MD ---
Consultation - Medical
-
patient seen chart reviewed. discussed with nursing. the patient is a 68 year old male who was brought to by [facility] where he has been for four months or so bc his mental status had changed. he was noted to be more
lethargic . prior he had been rather noisy and interacted w staff. staff had noted too that he was 'off balance', gait was disturbed. and that there might be a left visual disturbance. he has had several episodes since arrival of bradycardia,
hypotension, hypothermia. a stroke alert was called at one point. cat scan showed no acute changes only atrophy and ischemia. patient then noted to have a sz and was begun on keppra. new bradycardia noted that did not seem to be of the same
mechanism as that noted at admit. no patient also noted at this point to have pneumonia. the patient can give almost no history. he could not tell me where he was, how he had gotten to [facility], his medical hx or his psychiatric hx. he denied
hallucinations but it is not clear how reliable this is. the patient tells me he has no family and friends. he could tell me his name and date of and that he was raised in [facility].
i called the intermediate who told me that the intermediate prescribed risperdal 2 mg on 04/24. the gentleman with whom i spoke could not tell me why. risperdal increased to to 3 mg in mid april.. he came to the [facility] on 04/22. at that time he was not
on risperdal but it was noted he had been prescribed risperdal on a past visit to the intermediate in february of 2024. patient has hx of opiate abuse specifically fentanyl. it was also noted in the intermediate record that he had 'no overt symptoms' of
psychosis but risperdal started anyway. they could give me no other hx of mr woods's life.
past psych hx the only other info i could get from the intermediate re hx was that he had been at [facility] in the past which was likely on their drug and etoh rx unit
medical hx patient takes buprenorphine 8 mg daily. see hx above patient w hx niddm glucose on admit 65 hgb 11.7 tox + buprenorphine bp 112/72 p 61 afebrile cat scan as above chest xr suggests pneumonia neuro did not note cogwheeling
fh not known
substance abuse see above
social hx not known other than as reported above
mse calm cooperative poor historian speech very sparse answered very briefly usually 'i don't know' oriented to person only. no overt evidence of psychosis denied depression affect blunted no si cognition impaired insight judgment lacking
dx tme secondary to unknown etiology perhaps superimposed on dementia whether there is a hx of psychosis i cannot say from available information
plan clearly there has been a mental status change which is perhaps understandable given the many medical problems mr woods has experienced. agree with dc of risperdal which has been albeit rarely a cause of some of the sx which afflict him eg
hypothermia gait /balance issues. withdrawal. it can also be implicated in aspiration. in any case there are not active hallucinations or delusions interfering w patient care in fact quite the opposite...i.e. lethargy. would not restart
risperdal unless there is a clear indication for rx with antipsychotics. will look in on him tomorrow.
--- NOTE | 2024-07-03 16:00 | PTCARENOTE ---
OOB with PT to chair. immed requested to go back to bed, remained with encouragement in chair for approx 45 min. gait strong, min assistance while ambulating.
[2024-07-03 17:31] LABS: Glucose - Point of Care 95 mg/dl (70-99)
[2024-07-03] MEDS: LOVENOX 40 MG SC (17:53)
--- NOTE | 2024-07-03 18:02 | PTCARENOTE ---
1730 found patient resting in bed, had just removed color television console monitor, found with PICC line removed entirely and in the bed with him. Unable to explain rationale. Attempt by ROUNDHOUSE FIRER/FIREMAN, unable. IV team here to start new line.
--- NOTE | 2024-07-03 21:06 | PTCARENOTE ---
Pt assessed. Pt alert and oriented to person. Flat affect noted. Pt denies pain and refused PM cares including oral cares. Pt able to move all extremities x4. Endorses (+) sensation x4. PERRLA. Pt on RA. Lungs CTABL but diminished. Pt SB on monitor.
(+) edema to BLE. (+) pulses x4. Pt denies abd discomfort. Pt urinating in urinal. Occasional incontinence noted. Skin in tact. Currently Midline is in place and patent. 2 guards from correctional facility at bedside. No s/s of distress assessed.
Will continue to monitor.
[2024-07-03 21:57] LABS: Glucose - Point of Care 153 mg/dl (70-99)
[2024-07-04] MEDS: UNASYN IV ×3 (00:28→11:59)
[2024-07-04 00:31] VITALS: BP 153/78
[2024-07-04 00:32] VITALS: BP 140/77
[2024-07-04] MEDS: ProAmatine PO (00:34)
--- NOTE | 2024-07-04 01:29 | PTCARENOTE ---
Pt status unchanged. Remains SB on monitor with no dips in HR noted. Corrections officers remain at bedside. No s/s of distress assessed. Will continue to monitor.
[2024-07-04 05:26] VITALS: BP 150/84
[2024-07-04] MEDS: SUBUTEX 8 MG SL (05:59)
[2024-07-04 06:00] VITALS: BMI 28.8
--- NOTE | 2024-07-04 06:17 | PTCARENOTE ---
No change in pt status. No s/s of distress assessed. Will continue to monitor.
[2024-07-04 06:23] LABS: Hematocrit 39.1 % (39.0-52.0); Mean Corp Hgb Conc. 33.2 g/dL (33.0-37.0); Mean Corpuscular Hgb 29.9 pg (27.0-31.0); Mean Corpuscular Volume 89.9 fL (80.0-94.0); Mean Platelet Volume 13.8 fL (7.4-10.4); Platelet Count 123 10^3/uL (130-400); Red Blood Cell Count 4.35 10^6/uL (4.70-6.10); Red Cell Dist. Width 12.9 % (11.5-14.5); White Blood Cell Count 5.3 10^3/uL (4.8-10.8)
[2024-07-04 07:08] LABS: Blood Urea Nitrogen 15 mg/dl (9-20); Calcium 9.2 mg/dl (8.4-10.2); Carbon Dioxide 31 mmol/L (22-30); Chloride 97 mmol/L (98-107); Estimated Creatinine Clearance 75 ml/min; Glucose 86 mg/dl (70-99); Potassium 4.5 mmol/L (3.5-5.1); Sodium 137 mmol/L (135-145); eGFR > 60.00
[2024-07-04 07:52] VITALS: BP 128/75
[2024-07-04] MEDS: ProAmatine 5 MG PO (07:59)
[2024-07-04] MEDS: KEPPRA 500 MG IV (07:59)
[2024-07-04] MEDS: THERAGRAN 1 TABLET PO (07:59)
[2024-07-04 08:19] LABS: Glucose - Point of Care 76 mg/dl (70-99)
--- NOTE | 2024-07-04 08:46 | PTCARENOTE ---
recd pt, assessed. officers remain bedside. ordered and awaiting breakfast. c/o hungry. took am meds easily. voiding clear yellow. forgetful and confused today, but intermittently interactive and engaged. smiling at times. aware (briefly) of
plan for the day.
--- NOTE | 2024-07-04 11:13 | W.PN.UPDATE ---
Update Note
Progress Note Update
patient seen chart reviewed. spoke w nursing. checked patient for cogwheeling which can occur w risperdal recently dc'ed. there was none. wrists were quite supple. mental status better today . fully oriented. c/o cold and was thankful when
blankets brought. would continue to hold risperdal unless compelling reason to restart. i understand dc today
[2024-07-04 12:11] LABS: Glucose - Point of Care 99 mg/dl (70-99)
--- NOTE | 2024-07-04 12:19 | PTCARENOTE ---
oob to chair for lunch.
[2024-07-04 13:05] VITALS: BP 138/70
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
--- NOTE | 2024-07-04 14:22 | CM ---
CM following re: discharge planning.
Discharge order noted. Pt will return to [facility].
[facility] nursing report: [phone]
Discharge instructions fax: [phone]
D/C plan: return back to [facility]. Guards to transport.
--- NOTE | 2024-07-04 15:31 | PTCARENOTE ---
paperwork completed and printed, to officers. pt dcd back to [facility] via their transport. Midline removed 1450, dressing occlusive at time of discharge.
== END 2024-07-04 15:38 | DRG 871 ==
LOC: ICU 12:21
PROVIDERS: Nurse Practitioner Primary Care; Physician Assistant Medical; Registered Nurse; ADMITTING PHYSICIAN Hospitalist; ATTENDING PHYSICIAN Internal Medicine; CONSULT PHYSICIAN Internal Medicine; CONSULT PHYSICIAN Internal Medicine Cardiovascular Disease; CONSULT PHYSICIAN Psychiatry & Neurology Neurology; CONSULT PHYSICIAN Psychiatry & Neurology Psychiatry; EMERGENCY PHYSICIAN Emergency Medicine
DX: A41.9 Sepsis, unspecified organism (principal); J69.0 Pneumonitis due to inhalation of food and vomit; R65.21 Severe sepsis with septic shock; I5A Non-ischemic myocardial injury (non-traumatic); G93.40 Encephalopathy, unspecified; Z87.891 Personal history of nicotine dependence; E11.65 Type 2 diabetes mellitus with hyperglycemia; Z11.52 Encounter for screening for COVID-19
CPT/HCPCS: 36600; 51702; 70450; 71045; 80048; 80053; 80306; 80307; 81003; 82533; 82550; 82607; 82746; 82805; 82962; 83036; 83605; 83735; 84145; 84146; 84439; 84443; 84484; 85025; 85027; 86618; 86780; 87040; 87070; 87389; 87502; 87811; 92526; 92610; 93005; 93306; 95816; 96374; 96375; 97163; 99291

== ENCOUNTER 2024-07-06 05:48 | Inpatient (IN) | payer OTHER, SELFPAY ==
[2024-07-05 17:35] VITALS: BP 159/116
[2024-07-05 22:35] LABS: Hematocrit 40.8 % (39.0-52.0); Hemoglobin 13.5 g/dL (13.0-18.0); Mean Corp Hgb Conc. 33.1 g/dL (33.0-37.0); Mean Corpuscular Hgb 29.5 pg (27.0-31.0); Mean Corpuscular Volume 89.1 fL (80.0-94.0); Mean Platelet Volume 12.9 fL (7.4-10.4); Platelet Count 120 10^3/uL (130-400); Red Blood Cell Count 4.58 10^6/uL (4.70-6.10); Red Cell Dist. Width 12.9 % (11.5-14.5); White Blood Cell Count 5.2 10^3/uL (4.8-10.8)
[2024-07-05 23:04] LABS: TSH 1.72 uIU/ml (0.47-4.68)
[2024-07-05 23:24] VITALS: BP 147/66
[2024-07-06] VITALS (15 sets, daily range): BP systolic 91–167; BP diastolic 49–92; BMI 28.0
--- NOTE | 2024-07-06 01:15 | VATNOTE ---
ATTEMPTED X4 TO INSERT A ML IN RUE. PT RECENTLY AN IN-PAT WITH A PICC AND ML. USG IV IN EMR TONIGHT INFILTRATED. ABLE TO CANNULATE VESEL EACH TIME WITH A BRISK BR, BUT UNABLE TO THREAD WIRE. PT WITH NO CURRENT NEED FOR AN IV ACCESS. LABS OBTAINED
ORDERED. UNSUCCESSFUL WELL IN ESTABLISHING A PIV SITE . PCN AND PROVIDER AWARE OF INTERVENTIONS AND OUTCOME.
[2024-07-06 01:24] LABS: ALT (SGPT) 27 U/L (0-50); AST (SGOT) 33 U/L (17-59); Albumin 4.2 g/dl (3.5-5.0); Alkaline Phosphatase 86 U/L (38-126); Blood Urea Nitrogen 17 mg/dl (9-20); Calcium 9.5 mg/dl (8.4-10.2); Carbon Dioxide 29 mmol/L (22-30); Chloride 95 mmol/L (98-107); Glucose 80 mg/dl (70-99); Magnesium 1.6 mg/dl (1.6-2.3); Sodium 134 mmol/L (135-145); Total Bilirubin 0.5 mg/dl (0.2-1.3); Total Protein 7.6 g/dl (6.3-8.2); eGFR > 60.00
--- NOTE | 2024-07-06 02:42 | ED.GENMED ---
History of Present Illness
General
Chief Complaint: Weakness
Source: patient and ambulance crew
Exam Limitations: none
Time Seen by Provider: 07/05/24 19:38
Nursing documentation reviewed up to this point in time: agreed with
History of Present Illness
History of Present Illness:
Patient discharged from [facility] yesterday, returns to ED from [facility] after he was found to have unsteady gait at [facility] this afternoon. Upon arrival, patient has no complaints, but does report that he does
and has been experiencing left-sided weakness and difficulty ambulating. Denies headache. Denies dizziness. Denies loss of sensation. Denies difficulty with speech. Denies chest pain. Denies chest palpitations. Denies vomiting or diarrhea.
Denies blurred vision.
Past History
Past History
ED Past Medical History: NIDDM
ED Past Surgical History: Other (Unknown)
Social History
Tobacco: Former smoker
Alcohol: None
Drug: None
Personal: Single
Living: [facility]
Review of Systems
Review of Systems
Allergies reviewed?: Yes
Constitutional: Reports no symptoms
Respiratory: Reports no symptoms
Cardiac: Reports no symptoms
ABD/GI: Reports no symptoms
: Reports no symptoms
Musculoskeletal: Reports no symptoms
Skin: Reports no symptoms
Neurological: Reports weakness; Denies dizzy or headache
Phy Exam
Physical Exam
Physical Exam:
Physical Exam
General: no apparent distress, not acutely ill. afebrile
Head: nc/at. eomi
Neck: supple. normal range of motion.
Heart: s1/s2 regular rate and rhythm, no murmur. equal radial pulses.
Lungs: no acute respiratory distress. clear bilaterally
Abdomen: normal bowel sounds. not tender.
Neuro: alert and oriented x 3. no focal sensory/motor deficit. normal speech. unsteady gait noted
Skin: no rash
Psychiatric: well kept. interactive and cooperative
Extremities: no edema. no calf tenderness.
Course
Orders/Labs/Results
Orders:
Orders
07/05/24 21:59
Complete Blood Count/No Diff Urgent
TSH Urgent
07/05/24 23:40
Comprehensive Metabolic Panel Urgent
Magnesium Urgent
07/06/24 00:00
CT Head W/o Iv Contrast Urgent
Reason For Exam: left sided weakness
07/06/24 05:26
Admit/Transfer Patient As Directed
Co-Sign Provider:
Level of Care: Inpatient admission
Assign to:: Telemetry
Physician / Group: Hospitalist
Diagnosis: gait disorder
Reason for Telemetry: CVA/TIA
Date to Stop Telemetry: 07/09/24
Time to Stop Telemetry: 11:00
Reason for Hospitalization: Gait disturbance
Expected length of stay greater than two midnights?: Yes
ELOS- Estimated Length of Stay in days: 2
I certify the patient meets the requirements for IP care: Yes
PRN Pain Medication Management As Directed
May give lesser potent ordered pain med per pt: Yes
preference::
Protocol:: Medication orders for pain may be administered in a
manner that supports deferring to patient preference
when the pt is:
- Requesting an ordered lesser potent pain medication.
Least to most potent pain medications are defined
as: acetaminophen < NSAID < tramadol < opioids
(morphine, oxycodone, hydromorphone).
- Requesting a lesser dose of the same medication IF
ORDERED.
- Requesting a less intrusive route of administration
if both routes are prescribed by the provider (PO <
IV).
07/06/24 05:28
Code Status As Directed
Resuscitation Status: Full Code
07/06/24 05:53
Acetaminophen [Tylenol] 650 mg PO BIDPRN PRN
Bisacodyl [Dulcolax] 10 mg RECTAL [id number] PRN
Bumetanide [Bumex] 1 mg PO BIDPRN PRN
Docusate W/Senna [Senokot-S] 1 tablet PO BIDPRN PRN
Polyethylene Glycol Powder [Miralax] 17 grams PO DAILYPRN PRN
07/06/24 05:53
Consult Neurology [NEUROLOGY CONSULT] Routine
Consulting Provider: Alexa Silva
Was physician already notified: No
Reason for consult: gait disturbance
Consult Notification Routine
Specialty to Notify: Neurology
Date consulting provider notified: 07/06/24
Time consulting provider notified: 07:22
Notified:: Other
Activity As Directed
Activity Level: With Assistance
Neurological Checks As Directed
Frequency: Per unit guidelines
Pneumatic Compression Sleeves As Directed
Type: Knee high
Vital Signs As Directed
Frequency: Per unit guidelines
DX Deep Vein Thrombosis Video Routine
07/06/24 Breakfast
Regular
At Your Request: Full Participation
Does patient need a safe tray?: Yes
07/06/24 06:15
Basic Metabolic Panel IN AM
Complete Blood Count/No Diff IN AM
07/06/24 07:00
Buprenorphine [Subutex] 8 mg SL DAILY@0700
07/06/24 08:00
Acetaminophen [Tylenol] 650 mg PO Q4HWA
Amoxicillin 875 mg/Clav 125 mg [Augmentin 875 mg/125 mg] 1 tablet PO BID
Levetiracetam [Keppra] 500 mg PO BID
METFORMIN HCl [Glucophage] 500 mg PO BID@0800,1700
Multivitamin [Theragran] 1 tablet PO DAILY
07/09/24 11:00
DC Protocol for Telemetry ONCE
Abnormal Lab Results
07/05/24 07/05/24
21:59 23:40
RBC 4.58 L 10^6/uL
(4.70-6.10)
Plt Count 120 L 10^3/uL
(130-400)
MPV 12.9 H fL
(7.4-10.4)
Sodium 134 L mmol/L
(135-145)
Chloride 95 L mmol/L
(98-107)
07/05/24 21:59
07/05/24 23:40
Vital Signs
Initial and Last Documented VS:
Initial Vital Signs
Temp Pulse Resp Pulse Ox
98.1 F 49 20 97
07/05/24 17:34 07/05/24 17:34 07/05/24 17:34 07/05/24 17:34
Last Documented Vital Signs
Temp Pulse Resp BP Pulse Ox
98.1 F 66 20 107/70 99
07/05/24 17:34 07/06/24 13:15 07/05/24 17:34 07/06/24 13:14 07/06/24 11:15
MDM/Problems Addressed
MDM/Problems Addressed:
Pt noted to have unstable gait, but not leaning or ataxic. Discussed with oncall neurology () - recommends obtaining CT head and admitting patient for further evaluation and treatment.
*Critical Care Note
Total Time (30-74mins, 75-104mins- exclusive of procedures): Not Applicable
ED Attending Note
-
Portions of this chart may have been created with voice recognition software.� Occasional wrong word or��sound alike� substitutions may have occurred due to the inherent limitations of voice recognition software.
Discharge Plan
Departure
Patient Disposition: Admit
Date of Disposition: 07/06/24
Time of Disposition: 03:43
Presentation/result/management discussed w/ accepting MD/DO: Hospitalist
Discharge Problem:
Gait disturbance
Interventions
Interventions:
*Risk Screen - Suicide Last Done: 07/05/24 17:34
*General Assessment Last Done: 07/05/24 17:34
*Neglect/Abuse Screening Last Done: 07/05/24 17:34
ED- Fall Risk Assessment Last Done: 07/05/24 17:40
*ED COVID-19 Vaccine History Last Done: 07/05/24 17:34
ED- Cardiac Assessment Last Done: 07/05/24 17:40
ED- Neurological Assessment Last Done: 07/06/24 12:00
ED- Pulmonary Assessment Last Done: 07/05/24 17:40
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
[2024-07-06 06:26] LABS: Hematocrit 38.8 % (39.0-52.0); Hemoglobin 12.9 g/dL (13.0-18.0); Mean Corp Hgb Conc. 33.2 g/dL (33.0-37.0); Mean Corpuscular Hgb 29.7 pg (27.0-31.0); Mean Corpuscular Volume 89.2 fL (80.0-94.0); Mean Platelet Volume 12.9 fL (7.4-10.4); Platelet Count 115 10^3/uL (130-400); Red Blood Cell Count 4.35 10^6/uL (4.70-6.10); Red Cell Dist. Width 12.8 % (11.5-14.5); White Blood Cell Count 5.3 10^3/uL (4.8-10.8)
[2024-07-06 07:02] LABS: Blood Urea Nitrogen 15 mg/dl (9-20); Carbon Dioxide 31 mmol/L (22-30); Chloride 94 mmol/L (98-107); Glucose 102 mg/dl (70-99); Potassium 4.2 mmol/L (3.5-5.1); Sodium 133 mmol/L (135-145); eGFR > 60.00
[2024-07-06] MEDS: SUBUTEX 8 MG SL (09:00)
[2024-07-06] MEDS: GLUCOPHAGE 500 MG PO ×2 (09:01→16:17)
[2024-07-06] MEDS: AUGMENTIN 875 MG/125 MG 1 TABLET PO ×2 (09:01→20:32)
[2024-07-06] MEDS: KEPPRA 500 MG PO ×2 (09:01→21:35)
[2024-07-06] MEDS: THERAGRAN 1 TABLET PO (09:01)
[2024-07-06] MEDS: TYLENOL PO (09:07)
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
--- NOTE | 2024-07-06 12:58 | W.PN.UPDATE ---
Update Note
Progress Note Update
Seen by Dr. Vera on this morning.
Admitted for balance issues after discharge. He was recently admitted with change in mental status and seizure.
CT head shows no acute patho on this adx
Discussed with neurology today who thinks this may be it was provoked around an unprovoked seizure. Recommended tapering Keppra over the next 2 weeks.
Await PT eval.
[2024-07-06] MEDS: TYLENOL 650 MG PO ×4 (13:24→23:51)
--- NOTE | 2024-07-06 16:18 | PTCARENOTE ---
Received pt from ER via stretcher, accompanied by ER staff and [facility] guards. pt AAO x3, FULLER well, denies weakness/dizziness. Uncooperative at times; answers most questions 'I don't know'. VSS. Placed on telemetry:Sinus barbie 50's. On room air-
pulse ox 95%, no SOB noted. Abd soft, sl rounded, no c/o abd discomfort; to start regular diet. Voided in urinal upon arrival to room. MRSA swab sent. Oriented to [facility]. Resting quietly at present. Will continue to monitor.
[2024-07-07 03:35] VITALS: BP 129/67
[2024-07-07] MEDS: TYLENOL 650 MG PO ×2 (04:58→08:50)
[2024-07-07] MEDS: KEPPRA 250 MG PO (08:50)
[2024-07-07] MEDS: THERAGRAN 1 TABLET PO (08:50)
[2024-07-07] MEDS: GLUCOPHAGE 500 MG PO (08:50)
[2024-07-07] MEDS: AUGMENTIN 875 MG/125 MG 1 TABLET PO (08:52)
[2024-07-07] MEDS: SUBUTEX 8 MG SL (08:53)
[2024-07-07 09:02] VITALS: BP 102/65; BP 114/73; BP 116/90; PULSE 56; PULSE 70; PULSE 74
--- NOTE | 2024-07-07 10:34 | CM ---
Addendum entered by Sherry Waller 07/07/24 16:44:
Pt discharged to [facility] today.
Original Note:
RIGOBERTO met with Yamil and two guards at bedside.
Pt is a 68 year old male, admitted from [facility] and per guards pt will be transported back to [facility] by them when medically stable.
D/C plan: return back to [facility] nursing report: [phone]
Discharge instructions fax: [phone]
[2024-07-07 11:26] VITALS: BP 113/61
--- NOTE | 2024-07-07 11:41 | W.PN.HOSP.TC ---
Today's Communication/Plan
-
dc to [facility]
Assessment / Plan
Assessment / Plan
Unsteady gait evaluated by physical therapy recommended to continue follow-up at the [facility]
Additional was evaluated by neurology with no further recommended stations provided
History of seizures believed to be provoked therefore begin decreasing/tapering Keppra dosing by 250 mg every 5 to 7 days per neurology recommendation
Will need outpatient neurology and sleep medicine follow-up
Elevated PSA follow-up with Dr. Bartholomew
Diabetes A1c 6.5 continue metformin sliding scale goal blood glucose 1 40-1 80 carb controlled diet
Anticipated Discharge: Today
Subjective/Interval History
-
Date of Service: July 07, 2024
Seen and examined. No new complaints. No acute overnight events.
Able to ambulate when he has to do go to the bathroom.
Objective Data
-
Vital Signs:
Vital Signs
Temp Pulse Resp BP Pulse Ox
97.9 F 56 18 113/61 95
07/07/24 11:26 07/07/24 11:26 07/07/24 11:26 07/07/24 11:26 07/07/24 11:26
I&O
07/06/24 07/07/24 07/08/24
06:59 06:59 06:59
Intake Total 360 / 360
Output Total 1000 / 1000
Balance -640 / -640
Physical Exam
-
General: Well Developed and Well Nourished
HEENT: Normocephalic and Atraumatic
Respiratory: Clear to Auscultation
Cardiac: Regular Rhythm
GI: Soft, Nontender, Nondistended and Normal Bowel Sounds
Musculoskeletal: No Clubbing and No Cyanosis
Skin: Warm
Neuro: Awake, Alert, Oriented and AO x 3
Psych: Calm
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
[2024-07-07] MEDS: TYLENOL PO (12:27)
[2024-07-07 15:40] VITALS: BP 126/72
== END 2024-07-07 15:56 | disposition home or self-care (01) | DRG 92 ==
LOC: 4 EAST ACU 05:48
PROVIDERS: ADMITTING PHYSICIAN Internal Medicine; ATTENDING PHYSICIAN Hospitalist; CONSULT PHYSICIAN Psychiatry & Neurology Neurology; EMERGENCY PHYSICIAN Emergency Medicine
DX: G92.9 Unspecified toxic encephalopathy (principal); G93.49 Other encephalopathy; R56.9 Unspecified convulsions; E11.9 Type 2 diabetes mellitus without complications; I50.9 Heart failure, unspecified; F11.11 Opioid abuse, in remission; F17.200 Nicotine dependence, unspecified, uncomplicated; Z79.84 Long term (current) use of oral hypoglycemic drugs; Z80.9 Family history of malignant neoplasm, unspecified; F10.11 Alcohol abuse, in remission
CPT/HCPCS: 70450; 80048; 80053; 83735; 84443; 85027; 87070; 99285